=== PATIENT | male | born 1960 | race Caucasian/White ===

== ENCOUNTER 2017-06-08 09:01 | Inpatient (IN) | payer MEDICARE, MEDICAID ==
[~2017-06-08] VITALS: Ht 172.7 cm; Wt 62.7 kg
[~2017-06-08 09:01] MED LIST: AMLO10TA4 PO; ATEN50TA41 PO; BLOOD PRESSURE; CLOP75TA22 PO; ERGO500017 PO; IPRA4AER INH; LEVO750T26 PO; LISI5TAB7 PO; MULT-750 PO; OMEP-110 PO; OXYC1TAB7 PO
[2017-06-08] MEDS ORDERED: MECLIZINE CHEWABLE 25 MG TAB PO ONE (09:30)
[2017-06-08] MEDS ORDERED: ASPIRIN 81 MG TABLET CHEW PO ONE (09:30)
[2017-06-08] MEDS ORDERED: SODIUM CHLORIDE FLUSH 10ML SYR IVF ONE (09:30)
[2017-06-08] MEDS ORDERED: CARBAMIDE PEROXIDE EAR DROPS 6.5%, 15ML LEFT EAR ONE (09:30)
[2017-06-08 10:22] LABS: HEMATOCRIT 45.5 % (39.2-51.8); HEMOGLOBIN 15.5 g/dL (13.7-18.0); WHITE BLOOD COUNT 7.4 x10^3/uL (3.4-10)
[2017-06-08 10:37] LABS: BLOOD UREA NITROGEN 28 mg/dL (7-18)
[2017-06-08 10:41] LABS: IS PT STATUS REG ER OR PRE ER? YES
[2017-06-08] MEDS ORDERED: CARBAMIDE PEROXIDE EAR DROPS 6.5%, 15ML ONE (11:32)
[2017-06-08] MEDS ORDERED: ASPIRIN 81 MG TABLET CHEW ONE (11:32)
[2017-06-08] MEDS ORDERED: MECLIZINE CHEWABLE 25 MG TAB ONE (11:32)
[2017-06-08] MEDS ORDERED: SODIUM CHLORIDE 0.9%, 500ML IVBOLUS ONE (13:30)
[2017-06-08 15:30] VITALS: BP 181/109
[2017-06-08] MEDS ORDERED: morphine SULFATE 10 MG/ML, 1ML IVPush PRN (16:30)
[2017-06-08] MEDS ORDERED: DOCUSATE 100 MG CAPSULE PO PRN (16:30)
[2017-06-08] MEDS ORDERED: HYDROcodone/APAP 5/325 TABLET PO PRN (16:30)
[2017-06-08] MEDS ORDERED: NITROGLYCERIN 0.4 MG BOTTLE (25 TABS) SL PRN (16:30)
[2017-06-08] MEDS ORDERED: ACETAMINOPHEN 325 MG TABLET PO PRN (16:30)
[2017-06-08] MEDS ORDERED: POLYETHYLENE GLYCOL 17 GM PACKET PO PRN (16:30)
[2017-06-08] MEDS ORDERED: ONDANSETRON 2MG/ML, 2ML IVPush PRN (16:30)
[2017-06-08] MEDS ORDERED: LORazepam 2 MG/ML, 1ML IVPush PRN (16:30)
[2017-06-08] MEDS ORDERED: hydrALAzine 20 MG/ML, 1ML IVPush PRN (16:30)
[2017-06-08] MEDS ORDERED: PHARMACY MAY ADJ FOR RENAL FX MC PRN (16:30)
[2017-06-08] MEDS ORDERED: LORazepam 2 MG/ML, 1ML IV PRN ×4 (16:30)
[2017-06-08 16:44] LABS: ASPARTATE AMINO TRANSFERASE 28 U/L (15-37)
[2017-06-08 16:47] LABS: IS PT STATUS REG ER OR PRE ER? NO
[2017-06-08 17:02] VITALS: BP 153/100
[2017-06-08] MEDS: NICOTINE 14MG/24 HR PATCH.TD24 TD SCH (17:19)
[2017-06-08] MEDS: ATENOLOL 50 MG TABLET PO SCH (18:00)
[2017-06-08 18:10] VITALS: BP 132/85
[2017-06-08] MEDS: SODIUM CHLORIDE 0.9% 1,000 ML IV SCH (18:11)
[2017-06-08 20:50] VITALS: BP 134/83
[2017-06-08 22:21] LABS: IS PT STATUS REG ER OR PRE ER? NO
[2017-06-09 01:38] VITALS: BP 154/85
[2017-06-09] MEDS: ATENOLOL 50 MG TABLET PO SCH ×2 (05:13→18:44)
[2017-06-09] MEDS: SODIUM CHLORIDE 0.9% 1,000 ML IV SCH ×2 (05:13→19:52)
[2017-06-09 05:43] LABS: HEMATOCRIT 38.7 % (39.2-51.8); HEMOGLOBIN 13.1 g/dL (13.7-18.0); WHITE BLOOD COUNT 5.9 x10^3/uL (3.4-10)
[2017-06-09 05:58] LABS: ASPARTATE AMINO TRANSFERASE 23 U/L (15-37); BLOOD UREA NITROGEN 36 mg/dL (7-18)
[2017-06-09] MEDS ORDERED: ASPIRIN 325 MG TABLET EC PO SCH (06:00)
[2017-06-09 07:09] VITALS: BP 151/83
[2017-06-09] MEDS ORDERED: REGADENOSON 0.4 MG/5 ML SYRINGE ONE (07:46)
[2017-06-09] MEDS: AMLODIPINE 5 MG TABLET PO SCH (12:02)
[2017-06-09 12:40] VITALS: BP 144/83
[2017-06-09] MEDS ORDERED: AMLO10TA2 PO (16:13)
[2017-06-09] MEDS: NICOTINE 14MG/24 HR PATCH.TD24 TD SCH (16:30)
[2017-06-09] MEDS ORDERED: THIAMINE 200 MG in SODIUM CHLORIDE 0.9% 50 ML IV ONE (17:00)
[2017-06-09 17:37] LABS: PROSTATE SPECIFIC ANTIGEN 1.21 ng/mL (0.00-4.00)
[2017-06-09 19:22] VITALS: BP 153/93
[2017-06-10 01:37] VITALS: BP 153/88
[2017-06-10] MEDS ORDERED: ASPIRIN 325 MG TABLET EC PO SCH (06:00)
[2017-06-10 06:19] LABS: HEMATOCRIT 38.7 % (39.2-51.8); HEMOGLOBIN 13.1 g/dL (13.7-18.0); WHITE BLOOD COUNT 5.5 x10^3/uL (3.4-10)
[2017-06-10 06:28] LABS: BLOOD UREA NITROGEN 36 mg/dL (7-18)
[2017-06-10 06:58] VITALS: BP 145/85
[2017-06-10] MEDS: AMLODIPINE 5 MG TABLET PO SCH (08:43)
[2017-06-10] MEDS: ATENOLOL 50 MG TABLET PO SCH (08:43)
[2017-06-10] MEDS ORDERED: MULTIVITAMINS/MINERALS TABLET PO SCH (09:00)
[2017-06-10] MEDS: SODIUM CHLORIDE 0.9% 1,000 ML IV SCH (10:52)
[2017-06-10 12:09] LABS: OCCBLD OBC PASS
[2017-06-10] MEDS: NICOTINE 14MG/24 HR PATCH.TD24 TD SCH (16:30)
[2017-06-10 17:00] VITALS: BP_SYST 152; BP_SYST 155; BP_DIAS 90; BP_DIAS 91
[2017-06-10] MEDS ORDERED: MULT1TAB60 PO (17:23)
[2017-06-10] MEDS ORDERED: ASPI-621 PO (17:25)
== END 2017-06-10 18:34 | disposition home or self-care (01) | DRG 292 ==
LOC: ED 13:55 → EDIP 13:56 → ED 14:07 → 3NE 15:23 → 5SO 17:33
PROVIDERS: ADMIT Internal Medicine; ATTEND Internal Medicine
DX: I13.0 Hypertensive heart and chronic kidney disease with heart failure and stage 1 through stage 4 chronic kidney disease, or unspecified chronic kidney disease (principal); N17.9 Acute kidney failure, unspecified; I50.30 Unspecified diastolic (congestive) heart failure; N18.4 Chronic kidney disease, stage 4 (severe); Q61.2 Polycystic kidney, adult type; F10.288 Alcohol dependence with other alcohol-induced disorder; R07.9 Chest pain, unspecified; H91.92 Unspecified hearing loss, left ear; M54.5 Low back pain; F17.210 Nicotine dependence, cigarettes, uncomplicated; D63.1 Anemia in chronic kidney disease; D69.6 Thrombocytopenia, unspecified; F12.90 Cannabis use, unspecified, uncomplicated; G93.89 Other specified disorders of brain; I25.10 Atherosclerotic heart disease of native coronary artery without angina pectoris; I25.2 Old myocardial infarction; Z79.82 Long term (current) use of aspirin; Z82.49 Family history of ischemic heart disease and other diseases of the circulatory system; Z85.828 Personal history of other malignant neoplasm of skin; Z86.73 Personal history of transient ischemic attack (TIA), and cerebral infarction without residual deficits; Z95.5 Presence of coronary angioplasty implant and graft; Z83.3 Family history of diabetes mellitus
CPT/HCPCS: 36415; 70450; 70551; 71020; 71250; 76770; 78452; 80048; 80053; 80061; 80076; 82040; 82272; 83540; 83550; 83735; 83880; 84100; 84153; 84436; 84443; 84484; 85025; 93005; 93017; 93306; 99285; J2785; J3411; A9502; C9898; J7030

== ENCOUNTER 2018-06-20 10:53 | Emergency (ER) | payer MEDICARE, MEDICAID ==
[~2018-06-20] VITALS: Ht 172.7 cm; Wt 70.0 kg
[~2018-06-20 10:53] MED LIST changes: +AMLO10TA2 PO; +ASPI-621 PO; -CLOP75TA22 PO; +CLOP75TA52 PO; +MULT1TAB60 PO
[2018-06-20] MEDS ORDERED: HYDROcodone/APAP 5/325 TABLET PO PRN (11:30)
[2018-06-20] MEDS ORDERED: HYDROcodone/APAP 5/325 TABLET ONE (12:09)
[2018-06-20 12:59] VITALS: BP 151/85
== END 2018-06-20 13:41 | disposition home or self-care (01) ==
LOC: ED 10:59
DX: S01.01XA Laceration without foreign body of scalp, initial encounter (principal); S09.90XA Unspecified injury of head, initial encounter; I11.0 Hypertensive heart disease with heart failure; I25.2 Old myocardial infarction; I25.10 Atherosclerotic heart disease of native coronary artery without angina pectoris; I50.30 Unspecified diastolic (congestive) heart failure; Z85.9 Personal history of malignant neoplasm, unspecified; Y04.0XXA Assault by unarmed brawl or fight, initial encounter; Y93.89 Activity, other specified; Y92.89 Other specified places as the place of occurrence of the external cause; Y99.0 Civilian activity done for income or pay
CPT/HCPCS: 12001; 70450; 70486; 99284

== ENCOUNTER 2020-07-02 19:18 | Emergency (ER) | payer MEDICARE, MEDICAID ==
[~2020-07-02] VITALS: Ht 172.7 cm; Wt 61.6 kg
[~2020-07-02 19:18] MED LIST changes: -AMLO10TA2 PO; +AMLO10TA8 PO; -ASPI-621 PO; +ASPI81TA45 PO; +ATOR40TA78 PO; +DARB100V SQ; +FURO40TA6 PO; +HYDR-3237 PO; +METO50TA6 PO; +MULT-449 PO; -MULT1TAB60 PO; +NICO-485 TD; +PRED10TA PO; +PRED20TA PO; +SEVE800T8 PO; +SODI650T PO
--- NOTE | 2020-07-02 21:50 | NUR ---
Pt requesting O2 via NC at this time, pt states "i haven't taken my inhaler in several hours and need o2." Pt o2 sat 93% on RA, 2 L applied via NC per request for comfort
[2020-07-02 22:21] VITALS: BP 130/72
--- NOTE | 2020-07-02 22:21 | NUR ---
Pt DCed at this time, education provided on care at home and f/u. Pt states he "needs to be admitted because he hasn't slept in a while and if he goes to sleep, he may not be able to wake up for dialysis because they come to get him, but he may not be well enough to get up." Education provided on plan of care and that he is being DCed at this time per Dr Wilkinson orders. Pt provided with taxi voucher and wheelchaired to registration to check out.
== END 2020-07-02 22:26 | disposition home or self-care (01) ==
LOC: ED 21:21
DX: S41.112A Laceration without foreign body of left upper arm, initial encounter (principal); S50.812A Abrasion of left forearm, initial encounter; R94.31 Abnormal electrocardiogram [ECG] [EKG]; I11.0 Hypertensive heart disease with heart failure; I50.9 Heart failure, unspecified; I25.10 Atherosclerotic heart disease of native coronary artery without angina pectoris; I25.2 Old myocardial infarction; J44.9 Chronic obstructive pulmonary disease, unspecified; X58.XXXA Exposure to other specified factors, initial encounter; Y93.89 Activity, other specified; Y92.89 Other specified places as the place of occurrence of the external cause; Y99.8 Other external cause status
CPT/HCPCS: 12001; 93005; 99283

== ENCOUNTER 2020-12-20 08:59 | Emergency (ER) | payer MEDICARE, MEDICAID ==
[~2020-12-20] VITALS: Ht 175.3 cm; Wt 62.8 kg
[~2020-12-20 08:59] MED LIST changes: +AMLO-211 PO; -AMLO10TA8 PO; +CARV6.252 PO; +CEFD300C37 PO; +DARB60VI SQ; +DOXY100T23 PO; +LOSA25TA25 PO; +MULT1TAB76 PO
--- NOTE | 2020-12-20 09:56 | NUR ---
Patient is resting comfortably in bed. Vital Signs within normal limits.
[2020-12-20 10:01] LABS: BASOPHILS % (AUTO) 1 % (0-1); EOSINOPHILS % (AUTO) 2 % (1-7); LYMPHOCYTES % (AUTO) 14 % (22-44); MEAN CORPUSCULAR HEMOGLOBIN 36.4 pg (27.5-34.5); MEAN CORPUSCULAR HGB CONC 34.9 g/dL (33.2-36.2); MEAN PLATELET VOLUME 7.3 fL (7.4-10.4); MONOCYTES % (AUTO) 9 % (2-9); NEUTROPHILS % (AUTO) 74 % (42-75); PLATELET COUNT 81 x10^3/uL (130-400); RED BLOOD COUNT 2.68 x10^6/uL (4.38-5.82); RED CELL DISTRIBUTION WIDTH 16.8 % (9.4-14.8)
[2020-12-20 10:08] LABS: MD NO
[2020-12-20 10:10] LABS: ALBUMIN 3.7 g/dL (3.4-5.0); ANION GAP 11 mmol/L (5-15); CALCIUM 9.2 mg/dL (8.5-10.1); CHLORIDE 100 mmol/L (98-107); CREATININE 6.33 mg/dL (0.7-1.3)
[2020-12-20 10:15] LABS: INTERNATIONAL NORMALIZED RATIO 1.1 (0.93-1.1); PROTHROMBIN TIME 11.7 Seconds (9.6-11.5)
[2020-12-20] MEDS ORDERED: LIDOCAINE-MPF 1%, 5ML ONE (11:54)
[2020-12-20 11:55] VITALS: BP 131/69
[2020-12-20] MEDS ORDERED: LIDOCAINE 1%-EPI 1:100K, 20ML SQ ONE (12:00)
--- NOTE | 2020-12-20 12:00 | NUR ---
EDP AT BEDSIDE. MANISH WOUND/DRESSING UNWRAPPED. NO BLEEDING PRESENT. EDP INJECTED LIDO AND WRAPPED WITH GAUZE AND COBAN. PT TOLERATED WELL.
[2020-12-20] MEDS ORDERED: OMNIPAQUE 350 MG/ML, 75ML BOTTLE ONE (12:04)
--- NOTE | 2020-12-20 12:22 | NUR ---
PT TO CTA.
[2020-12-31] MEDS ORDERED: ASPI-1026 PO (14:54)
[2020-12-31] MEDS ORDERED: ATOR40TA78 PO (14:54)
== END 2020-12-20 13:42 | disposition home or self-care (01) ==
LOC: ED 11:42
DX: I12.9 Hypertensive chronic kidney disease with stage 1 through stage 4 chronic kidney disease, or unspecified chronic kidney disease (principal); N18.4 Chronic kidney disease, stage 4 (severe); R06.02 Shortness of breath; R06.00 Dyspnea, unspecified; I11.0 Hypertensive heart disease with heart failure; I50.9 Heart failure, unspecified; J44.9 Chronic obstructive pulmonary disease, unspecified; I25.2 Old myocardial infarction; I25.10 Atherosclerotic heart disease of native coronary artery without angina pectoris; R94.31 Abnormal electrocardiogram [ECG] [EKG]; F17.200 Nicotine dependence, unspecified, uncomplicated
CPT/HCPCS: 36415; 71045; 71275; 80048; 82040; 85025; 85610; 85730; 87040; 93005; 99285; Q9967

== ENCOUNTER 2021-03-02 21:53 | Emergency (ER) | payer MEDICARE, MEDICAID ==
[~2021-03-02] VITALS: Ht 175.3 cm; Wt 65.0 kg
[~2021-03-02 21:53] MED LIST changes: +AMLO-150 PO; +ASPI-1026 PO; +CARV12.52 PO; +CIPR500T87 PO; +FURO80TA3 PO; +MULT-482 PO; -MULT-750 PO
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
--- NOTE | 2021-03-02 23:05 | NUR ---
PT TAKEN TO CT SCAN AND BACK TO ROOM. BUILDINGS AND GROUNDS DIRECTOR TO BEDSIDE TO TAKE XRAYS OF THE NOSE. PT A&OX4.
--- NOTE | 2021-03-02 23:18 | NUR ---
LUMBER PRESS OPERATOR TO BEDSIDE TO DRAW LABS.
[2021-03-02 23:29] LABS: BASOPHILS % (AUTO) 1 % (0-1); EOSINOPHILS % (AUTO) 3 % (1-7); LYMPHOCYTES % (AUTO) 16 % (22-44); MEAN CORPUSCULAR HEMOGLOBIN 36.7 pg (27.5-34.5); MEAN CORPUSCULAR HGB CONC 34.9 g/dL (33.2-36.2); MEAN PLATELET VOLUME 6.8 fL (7.4-10.4); MONOCYTES % (AUTO) 10 % (2-9); NEUTROPHILS % (AUTO) 69 % (42-75); PLATELET COUNT 90 x10^3/uL (130-400); RED BLOOD COUNT 2.34 x10^6/uL (4.38-5.82); RED CELL DISTRIBUTION WIDTH 16.7 % (9.4-14.8)
[2021-03-02 23:39] LABS: ALANINE AMINOTRANSFERASE 36 U/L (12-78); ALBUMIN 3.6 g/dL (3.4-5.0); ANION GAP 6 mmol/L (5-15); CALCIUM 8.7 mg/dL (8.5-10.1); CHLORIDE 94 mmol/L (98-107); CREATININE 2.88 mg/dL (0.7-1.3)
[2021-03-02 23:42] LABS: ALKALINE PHOSPHATASE 79 U/L (45-117); BILIRUBIN,TOTAL 1.2 mg/dL (0.2-1.0); TOTAL PROTEIN 6.6 g/dL (6.4-8.2)
[2021-03-02 23:55] LABS: MD SCAN
--- NOTE | 2021-03-03 00:16 | NUR ---
PT SLEEPING AT THIS TIME, NO DISTRESS. ON CR MONITOR.
--- NOTE | 2021-03-03 00:36 | NUR ---
PT AWAKENED AND ASSITED TO SITTING AND STANDING POSITION TO SEE HOW PT DOES. PT STATES HE HAS MASSIVE PAIN TO HIS UPPER THIGHS BILATERALLY. UNABLE TO WALK PER PT. MD ADVISED.
--- NOTE | 2021-03-03 01:10 | NUR ---
PT STATES HE IS HAVING TROUBLE BREATHING, ON O2 NC 2 LPM AT THIS TIME. PT SAYS EVEN WHEN HE IS SATURATING 100% HE IS IN RESPIRATORY DISTRESS, AND IT'S ONLY THAT HIGH BECAUSE HE'S GASPING FOR OXYGEN. PT HAVING 2 WORD SENTENCES IN HIS ATTEMPTS TO TALK, USING SOME ACCESORY MUSCLES. MD ADVISED FOR REASSESMENT OF PTS STATUS.
--- NOTE | 2021-03-03 01:15 | NUR ---
Note trueone in EDM - 03/03/21 at 0120 by RABIA RIO ARRIVED TO TRANSFER PT TO [facility]. PT A&OX4, NO DISTRESS AT THIS TIME, REMAINS ON O2 NC 1LPM. REPORT AND CARE TRANSFERRED TO EMS CREW. PTS IV INTACT, FLUSHES EASILY .
[2021-03-03 01:16] VITALS: BP 108/61
[2021-03-03] MEDS ORDERED: ALBUTEROL/IPRATROPIUM 2.5MG/0.5MG, 3 ML ONE (01:23)
[2021-03-03] MEDS ORDERED: ALBUTEROL/IPRATROPIUM 2.5MG/0.5MG, 3 ML NPPB ONE (01:30)
== END 2021-03-03 01:18 | disposition home or self-care (01) ==
LOC: ED 22:50
DX: S02.2XXA Fracture of nasal bones, initial encounter for closed fracture (principal); F10.120 Alcohol abuse with intoxication, uncomplicated; J44.1 Chronic obstructive pulmonary disease with (acute) exacerbation; I11.0 Hypertensive heart disease with heart failure; I50.9 Heart failure, unspecified; I25.2 Old myocardial infarction; J44.9 Chronic obstructive pulmonary disease, unspecified; I25.10 Atherosclerotic heart disease of native coronary artery without angina pectoris; F17.200 Nicotine dependence, unspecified, uncomplicated; Z85.9 Personal history of malignant neoplasm, unspecified; X58.XXXA Exposure to other specified factors, initial encounter; Y93.89 Activity, other specified; Y92.89 Other specified places as the place of occurrence of the external cause; Y99.8 Other external cause status; Y90.0 Blood alcohol level of less than 20 mg/100 ml
CPT/HCPCS: 36415; 70450; 70486; 71045; 80053; 80320; 85025; 99285; G0480

== ENCOUNTER 2021-06-09 16:28 | Inpatient (IN) | payer MEDICARE, MEDICAID ==
[~2021-06-09] VITALS: Ht 172.7 cm; Wt 63.8 kg
[~2021-06-09 16:28] MED LIST changes: +ASPI325T17 PO; +CARV3.1212 PO; +HYDR-2214 PO; +OXYC1TAB14 PO; +SPIR25TA PO
--- NOTE | 2021-06-09 16:44 | NUR ---
PT HAD DIALYSIS ON THURSDAY AND FEELS SOB AND FEELS THAT THEY DID NOT TAKE OFF ENOUGH FLUID. PT HAS FISTULA IN LEFT UPPER ARM.
[2021-06-09 18:34] LABS: BASOPHILS % (AUTO) 1 % (0-1); EOSINOPHILS % (AUTO) 2 % (1-7); LYMPHOCYTES % (AUTO) 16 % (22-44); MEAN CORPUSCULAR HEMOGLOBIN 36.1 pg (27.5-34.5); MEAN PLATELET VOLUME 8.5 fL (7.4-10.4); MONOCYTES % (AUTO) 11 % (2-9); NEUTROPHILS % (AUTO) 71 % (42-75); PLATELET COUNT 78 x10^3/uL (130-400); RED BLOOD COUNT 2.52 x10^6/uL (4.38-5.82); RED CELL DISTRIBUTION WIDTH 16.9 % (9.4-14.8)
[2021-06-09 18:37] LABS: ALANINE AMINOTRANSFERASE 20 U/L (12-78); ALBUMIN 3.5 g/dL (3.4-5.0); ANION GAP 11 mmol/L (5-15); CALCIUM 8.9 mg/dL (8.5-10.1); CHLORIDE 95 mmol/L (98-107); CREATININE 6.01 mg/dL (0.7-1.3)
[2021-06-09 18:41] LABS: ALKALINE PHOSPHATASE 65 U/L (45-117); BILIRUBIN,TOTAL 1.2 mg/dL (0.2-1.0); TOTAL PROTEIN 6.9 g/dL (6.4-8.2); TROPONIN I < 0.015 ng/mL (0.000-0.045)
[2021-06-09] MEDS ORDERED: ONDANSETRON 2MG/ML, 2ML IVPush PRN ×2 (20:00→22:30)
[2021-06-09] MEDS ORDERED: MORPHINE SULFATE 4 MG/ML, 1ML IVPush PRN (20:00)
--- NOTE | 2021-06-09 21:01 | NUR ---
REPORT TO TOYA PATEL
[2021-06-09] MEDS ORDERED: LABETALOL 5MG/ML, 20ML IVPush PRN (22:30)
[2021-06-09] MEDS ORDERED: GABAPENTIN 300 MG CAPSULE PO PRN (22:30)
--- NOTE | 2021-06-09 23:56 | NUR ---
PT ASLEEP IN BED, ALL NEEDS IN REACH, CALL LIGHT IN REACH, NAD AT THIS TIME
--- NOTE | 2021-06-10 | NUR ---
Break RN assuming care at this time.
--- NOTE | 2021-06-10 00:49 | NUR ---
PT WOKE UP STATING HE CANT BREATH AND WANTED OXYGEN TO GET TURNED UP, PT STATED, "BLAST THE OXYGEN PLEASE", PT ON NASAL CANULA RUNNING AT 6 LPM
[2021-06-10] MEDS ORDERED: HEPARIN 5,000 UNITS/ML, 1ML ONE (01:13)
--- NOTE | 2021-06-10 02:11 | NUR ---
PT ASLEEP IN BED, ALL NEEDS IN REACH, CALL LIGHT IN REACH, NAD AT THIS TIME, VSS
--- NOTE | 2021-06-10 05:21 | NUR ---
PT ASLEEP IN BED, ALL NEEDS IN REACH, CALL LIGHT IN REACH, NAD AT THIS TIME
[2021-06-10] MEDS ORDERED: CARVEDILOL 3.125 MG TABLET ONE (05:47)
[2021-06-10] MEDS: CARVEDILOL 3.125 MG TABLET PO SCH ×2 (05:55→18:00)
--- NOTE | 2021-06-10 05:56 | NUR ---
THIS RN WOKE PT UP FOR MEDICATION ADMINISTRATION, THIS RN WAS TO GIVE CARVEDILOL AND PT ASKED WHAT IT WAS FOR, THIS RN STATED IT WAS FOR BLOOD PRESSURE AND PT ASKED WHAT HIS BLOOD PRESSURE WAS, PTS BLOOD PRESSURE WAS WITHIN NORMAL LIMITS SO PT SAID HE DIDNT NEED IT AT THE MOMENT, PT WENT BACK TO SLEEP, PT NAD, ALL NEEDS IN REACH, CALL LIGHT IN REACH, NAD AT THIS TIME
[2021-06-10 06:15] LABS: BASOPHILS % (AUTO) 1 % (0-1); EOSINOPHILS % (AUTO) 1 % (1-7); LYMPHOCYTES % (AUTO) 15 % (22-44); MEAN CORPUSCULAR HEMOGLOBIN 35.8 pg (27.5-34.5); MEAN CORPUSCULAR HGB CONC 34.4 g/dL (33.2-36.2); MONOCYTES % (AUTO) 10 % (2-9); NEUTROPHILS % (AUTO) 72 % (42-75); PLATELET COUNT 65 x10^3/uL (130-400); RED BLOOD COUNT 2.23 x10^6/uL (4.38-5.82); RED CELL DISTRIBUTION WIDTH 16.8 % (9.4-14.8)
[2021-06-10 06:19] LABS: ANION GAP 7 mmol/L (5-15); CALCIUM 8.7 mg/dL (8.5-10.1); CHLORIDE 98 mmol/L (98-107)
--- NOTE | 2021-06-10 07:13 | NUR ---
Pt to be admitted to [facility], room 493-1. Report called to AMEE.
[2021-06-10] MEDS: HEPARIN 5,000 UNITS/ML, 1ML SQ SCH ×3 (08:00→15:55)
[2021-06-10 08:01] VITALS: BP 117/69
[2021-06-10] MEDS: ALBUTEROL/IPRATROPIUM 2.5MG/0.5MG, 3 ML HHN SCH ×4 (08:33→19:44)
[2021-06-10 09:37] VITALS: BP 111/67
[2021-06-10] MEDS: ASPIRIN 325 MG TABLET PO SCH (09:42)
[2021-06-10] MEDS: FUROSEMIDE 40 MG TABLET PO SCH ×2 (09:42→18:51)
[2021-06-10] MEDS: ACETAMINOPHEN 325 MG TABLET PO PRN ×2 (09:42→20:34)
[2021-06-10] MEDS: THIAMINE 100MG TABLET PO SCH (09:42)
[2021-06-10 14:44] VITALS: BP 127/82
[2021-06-10 20:29] VITALS: BP 111/48
[2021-06-10] MEDS: GABAPENTIN 300 MG CAPSULE PO PRN (20:33)
[2021-06-10] MEDS ORDERED: ATORVASTATIN 40 MG TABLET PO SCH (21:00)
[2021-06-11 02:07] VITALS: BP 119/71
[2021-06-11 05:19] LABS: BASOPHILS % (AUTO) 1 % (0-1); EOSINOPHILS % (AUTO) 3 % (1-7); LYMPHOCYTES % (AUTO) 14 % (22-44); MEAN CORPUSCULAR HEMOGLOBIN 35.2 pg (27.5-34.5); MEAN CORPUSCULAR HGB CONC 34.2 g/dL (33.2-36.2); MEAN PLATELET VOLUME 7.5 fL (7.4-10.4); MONOCYTES % (AUTO) 10 % (2-9); NEUTROPHILS % (AUTO) 72 % (42-75); PLATELET COUNT 68 x10^3/uL (130-400); RED BLOOD COUNT 2.38 x10^6/uL (4.38-5.82); RED CELL DISTRIBUTION WIDTH 16.9 % (9.4-14.8)
[2021-06-11 05:26] LABS: ALBUMIN 3.4 g/dL (3.4-5.0); ANION GAP 9 mmol/L (5-15); CALCIUM 8.2 mg/dL (8.5-10.1); CHLORIDE 93 mmol/L (98-107)
[2021-06-11 05:35] LABS: % IRON SATURATION 30 % (20-55); ALANINE AMINOTRANSFERASE 22 U/L (12-78); ALKALINE PHOSPHATASE 59 U/L (45-117); BILIRUBIN,TOTAL 1.4 mg/dL (0.2-1.0); CREATININE 3.69 mg/dL (0.7-1.3); IRON LEVEL 78 mcg/dL (65-175); TOTAL IRON BINDING CAPACITY 264 mcg/dL (250-450); TOTAL PROTEIN 6.9 g/dL (6.4-8.2)
[2021-06-11] MEDS: CARVEDILOL 3.125 MG TABLET PO SCH ×2 (06:38→18:03)
[2021-06-11] MEDS: FUROSEMIDE 40 MG TABLET PO SCH ×2 (06:39→18:03)
[2021-06-11] MEDS: HEPARIN 5,000 UNITS/ML, 1ML SQ SCH ×3 (07:16→16:00)
[2021-06-11] MEDS: ALBUTEROL/IPRATROPIUM 2.5MG/0.5MG, 3 ML HHN SCH ×4 (07:30→19:03)
[2021-06-11 08:04] VITALS: BP 91/50
[2021-06-11] MEDS: GABAPENTIN 300 MG CAPSULE PO PRN (08:37)
[2021-06-11] MEDS: THIAMINE 100MG TABLET PO SCH (08:37)
[2021-06-11] MEDS: ASPIRIN 325 MG TABLET PO SCH (08:37)
[2021-06-11] MEDS ORDERED: ASPI-963 PO (17:32)
== END 2021-06-11 19:48 | disposition home or self-care (01) | DRG 291 ==
LOC: ED 16:55 → EDIP 19:36 → 4EST 06-10 07:33
PROVIDERS: ADMIT Family Medicine; ATTEND Hospitalist
PROC: 5A1D70Z Performance of Urinary Filtration, Intermittent, Less than 6 Hours Per Day (ICD-10-PCS; principal; 2021-06-11)
DX: I13.2 Hypertensive heart and chronic kidney disease with heart failure and with stage 5 chronic kidney disease, or end stage renal disease (principal); I50.43 Acute on chronic combined systolic (congestive) and diastolic (congestive) heart failure; N18.6 End stage renal disease; Q61.3 Polycystic kidney, unspecified; E87.1 Hypo-osmolality and hyponatremia; Q61.2 Polycystic kidney, adult type; Z99.2 Dependence on renal dialysis; D63.1 Anemia in chronic kidney disease; D69.6 Thrombocytopenia, unspecified; E78.5 Hyperlipidemia, unspecified; F10.10 Alcohol abuse, uncomplicated; F12.10 Cannabis abuse, uncomplicated; F17.200 Nicotine dependence, unspecified, uncomplicated; G89.29 Other chronic pain; I25.10 Atherosclerotic heart disease of native coronary artery without angina pectoris; I25.5 Ischemic cardiomyopathy; J44.9 Chronic obstructive pulmonary disease, unspecified; K43.9 Ventral hernia without obstruction or gangrene; N25.0 Renal osteodystrophy; Z99.81 Dependence on supplemental oxygen; Z95.5 Presence of coronary angioplasty implant and graft; I25.2 Old myocardial infarction; Z86.73 Personal history of transient ischemic attack (TIA), and cerebral infarction without residual deficits; Z91.19 Patient's noncompliance with other medical treatment and regimen
CPT/HCPCS: 36415; 71045; 80048; 80053; 82306; 82728; 83540; 83550; 83970; 84100; 84484; 85025; 90935; 93005; 93308; 93321; 93325; 94640; 99285; G0378

== ENCOUNTER 2021-06-18 11:45 | Inpatient (IN) | payer MEDICARE, MEDICAID ==
[~2021-06-18] VITALS: Ht 175.3 cm; Wt 67.2 kg
[~2021-06-18 11:45] MED LIST changes: +ASPI-963 PO; +EPINEPHRINE SYRINGE 0.1 MG/ML, 10ML ONE; +OXYC1TAB12 PO; -OXYC1TAB14 PO; +SODIUM BICARB 8.4%, 50ML SYRINGE ONE
--- NOTE | 2021-06-18 11:45 | NUR ---
DR AGUILAR AT BEDSIDE TO EVAL PT. 61 YR OLD MALE BROUGHT IN BY EMS. PER REPORT PT WAS ON RTC BUS FROM DIALYSIS, PT "PASSED OUT, WASNT BREATHING" PT FOUND TO BE IN VFIB, CPR INITIATED, DEFIB X3 AND TWO ROUNDS OF EPI, AMMIO 300MG GIVEN. BLOOD SUGAR 152. ROSC RETURNED. PT ARRIVES WITH 7.0 ETT, BMV IN PROCESS. I/O IN LEFT RAMIRES NS INFUSING. PT PLACED ON MONITORS. 1 AMP CALCIUM CHLORIDE GIVEN PER V/O DR AGUILAR.
[2021-06-18] MEDS ORDERED: SODIUM CHLORIDE FLUSH 10ML SYR IVF ONE (12:00)
[2021-06-18] MEDS ORDERED: CALCIUM CHLORIDE 10%, 10ML SYR IVPush ONE (12:00)
--- NOTE | 2021-06-18 12:03 | NUR ---
RT AT BEDSIDE TO PLACE PT ON VENTILATOR
--- NOTE | 2021-06-18 12:05 | NUR ---
CODE BLUE CALLED PT IN [facility]. SEE CODE SHEET
[2021-06-18 12:35] LABS: BASOPHILS % (AUTO) 1 % (0-1); EOSINOPHILS % (AUTO) 2 % (1-7); LYMPHOCYTES % (AUTO) 28 % (22-44); MEAN CORPUSCULAR HGB CONC 34.3 g/dL (33.2-36.2); MEAN PLATELET VOLUME 7.6 fL (7.4-10.4); MONOCYTES % (AUTO) 3 % (2-9); NEUTROPHILS % (AUTO) 66 % (42-75); PLATELET COUNT 94 x10^3/uL (130-400); RED CELL DISTRIBUTION WIDTH 16.8 % (9.4-14.8)
[2021-06-18 12:38] LABS: INTERNATIONAL NORMALIZED RATIO 1.24 (0.93-1.1); PROTHROMBIN TIME 13.1 Seconds (9.6-11.5)
--- NOTE | 2021-06-18 12:40 | NUR ---
DR AGUILAR AT BEDSIDE FOR CENTRAL LINE PLACEMENT. PT WITH FISULA IN RIGHT UPPER ARM Addendum: 06/18/21 at 1314 by LOVE PT UNABLE TO SIGN CONSENT FOR CENTARAL LINE PLACEMENT.
[2021-06-18 12:41] LABS: FIO2 50 %
[2021-06-18] MEDS ORDERED: PROPOFOL 100 ML IV ONE (12:51)
[2021-06-18] MEDS ORDERED: MIDAZOLAM 1 MG/ML, 2ML ONE (12:51)
[2021-06-18 12:58] LABS: ALANINE AMINOTRANSFERASE 23 U/L (12-78); ALBUMIN 3.1 g/dL (3.4-5.0); ANION GAP 14 mmol/L (5-15); CALCIUM 8.8 mg/dL (8.5-10.1); CHLORIDE 99 mmol/L (98-107)
[2021-06-18] MEDS ORDERED: MIDAZOLAM 1 MG/ML, 2ML IVPush ONE (13:00)
[2021-06-18] MEDS ORDERED: PROPOFOL 100 ML IV PRN (13:00)
--- NOTE | 2021-06-18 13:05 | NUR ---
NS 1 LITER BAG, STARTED HORTICULTURE INSTRUCTOR, COMPLETED INFUSING.
[2021-06-18 13:21] LABS: ALKALINE PHOSPHATASE 64 U/L (45-117); BILIRUBIN,TOTAL 0.9 mg/dL (0.2-1.0); TOTAL PROTEIN 6.5 g/dL (6.4-8.2)
[2021-06-18 13:22] LABS: TROPONIN I 0.058 ng/mL (0.000-0.045)
--- NOTE | 2021-06-18 13:55 | NUR ---
ATTEMPT BY DR AGUILAR TO PLACE ART LINE IN RIGHT RADIAL, UNSUCCESSFUL
[2021-06-18] MEDS ORDERED: ACETAMINOPHEN 500 MG TABLET PO ONE (14:00)
--- NOTE | 2021-06-18 14:01 | NUR ---
REPORT TO BABITA PATEL
--- NOTE | 2021-06-18 14:03 | NUR ---
TASK RN: EKG IN PROCESS.
--- NOTE | 2021-06-18 14:31 | NUR ---
Cooling measures initated per protocol order.
[2021-06-18] MEDS ORDERED: SODIUM CHLORIDE FLUSH 10ML SYR IVF PRN (15:00)
[2021-06-18] MEDS ORDERED: FENTANYL PF 100 MCG/2ML ONE (15:23)
--- NOTE | 2021-06-18 15:28 | NUR ---
Report to Rahel PATEL.
[2021-06-18] MEDS ORDERED: FENTANYL PF 100 MCG/2ML IVPush ONE (15:30)
--- NOTE | 2021-06-18 15:56 | NUR ---
PT TRANSPORTED TO CCU.
[2021-06-18] MEDS ORDERED: POLYETHYLENE GLYCOL 17 GM PACKET PO PRN (16:00)
[2021-06-18] MEDS ORDERED: OXYcodone IR 5MG TABLET PO PRN (16:00)
[2021-06-18] MEDS ORDERED: BISACODYL 10 MG SUPP PR PRN (16:00)
[2021-06-18] MEDS ORDERED: ACETAMINOPHEN 325 MG TABLET PO PRN (16:00)
[2021-06-18] MEDS ORDERED: ENALAPRILAT 1.25 MG/ML, 2ML IVPush PRN (16:00)
[2021-06-18] MEDS ORDERED: LABETALOL 5MG/ML, 20ML IVPush PRN (16:00)
[2021-06-18] MEDS ORDERED: ONDANSETRON 2MG/ML, 2ML IVPush PRN (16:00)
[2021-06-18] MEDS ORDERED: morphine SULFATE 10 MG/ML, 1ML IVPush PRN (16:00)
[2021-06-18] MEDS ORDERED: SODIUM PHOSPHATE 20 MMOL in SODIUM CHLORIDE 0.9% 250 ML IVPB PRN (16:30)
[2021-06-18] MEDS ORDERED: MIDAZOLAM HCL 50 MG in SODIUM CHLORIDE 0.9% 40 ML IV PRN (16:30)
[2021-06-18] MEDS ORDERED: CALCIUM CHLORIDE 13.6 MEQ in SODIUM CHLORIDE 0.9% 100 ML IVPB PRN (16:30)
[2021-06-18] MEDS ORDERED: NOREPINEPHRINE 8 MG in SODIUM CHLORIDE 0.9% 242 ML IV PRN (16:30)
[2021-06-18] MEDS: ARTIFICIAL TEARS OINT 3.5 GM EACHEYE SCH (16:30)
[2021-06-18] MEDS ORDERED: MAGNESIUM SULFATE 1 GM in DEXTROSE 5% 100 ML IVPB PRN (16:30)
[2021-06-18] MEDS ORDERED: VECURONIUM 10 MG IVPush PRN (16:30)
[2021-06-18] MEDS ORDERED: MIDAZOLAM 1 MG/ML, 2ML IVPush PRN (16:30)
[2021-06-18] MEDS: KSCALE TO 4.0 IV SCH ×2 (16:30→20:30)
[2021-06-18] MEDS: NS + 20MEQ KCL 1,000 ML IV SCH (16:32)
[2021-06-18] MEDS: AMPICILLIN/SULBACTAM 1,500 MG in SODIUM CHLORIDE 0.9% 50 ML IV SCH ×2 (16:34→22:55)
[2021-06-18] MEDS: HEPARIN 5,000 UNITS/ML, 1ML SQ SCH (20:00)
[2021-06-18] MEDS ORDERED: FAMOTIDINE 20 MG/2 ML IVPush SCH (21:00)
[2021-06-18] MEDS ORDERED: NOREPINEPHRINE 32 MG in SODIUM CHLORIDE 0.9% 218 ML IV PRN (21:30)
[2021-06-18] MEDS ORDERED: NOREPINEPHRINE 32 MG in SODIUM CHLORIDE 0.9% 242 ML IV PRN (21:30)
[2021-06-18] MEDS: BUSPIRONE 10 MG TABLET NG SCH (22:08)
[2021-06-18] MEDS ORDERED: LACTATED RINGERS 500 ML IVBOLUS PRN (22:30)
[2021-06-18] MEDS ORDERED: REGULAR INSULIN 100 UNITS in SODIUM CHLORIDE 0.9% 99 ML IV PRN (22:30)
[2021-06-18] MEDS ORDERED: DOBUTAMINE/D5W PMX 250 ML IV PRN (22:30)
[2021-06-18] MEDS ORDERED: INSULIN REGULAR 100 UNITS/ML, 3ML VIAL IVPush ONE (23:00)
[2021-06-18] MEDS: PROPOFOL 100 ML IV PRN (23:03)
[2021-06-19] VITALS (12 sets, daily range): BP systolic 107–143; BP diastolic 54–65
[2021-06-19] MEDS: ARTIFICIAL TEARS OINT 3.5 GM EACHEYE SCH ×4 (00:04→23:55)
[2021-06-19] MEDS: FENTANYL PF 1,000 MCG in SODIUM CHLORIDE 0.9% 80 ML IV PRN ×2 (00:22→19:40)
[2021-06-19] MEDS: KSCALE TO 4.0 IV SCH ×3 (01:18→08:30)
[2021-06-19] MEDS ORDERED: POTASSIUM CHLORIDE PMX 100 ML IV ONE ×2 (01:30→05:30)
[2021-06-19] MEDS: HEPARIN 5,000 UNITS/ML, 1ML SQ SCH (04:00)
[2021-06-19] MEDS: PROPOFOL 100 ML IV PRN ×3 (04:04→17:46)
[2021-06-19 04:24] LABS: BASOPHILS % (AUTO) 0 % (0-1); EOSINOPHILS % (AUTO) 0 % (1-7); LYMPHOCYTES % (AUTO) 4 % (22-44); MEAN CORPUSCULAR HEMOGLOBIN 35.4 pg (27.5-34.5); MEAN CORPUSCULAR HGB CONC 34.5 g/dL (33.2-36.2); MEAN PLATELET VOLUME 7.9 fL (7.4-10.4); MONOCYTES % (AUTO) 8 % (2-9); NEUTROPHILS % (AUTO) 88 % (42-75); PLATELET COUNT 70 x10^3/uL (130-400); RED CELL DISTRIBUTION WIDTH 17.2 % (9.4-14.8)
[2021-06-19 04:30] LABS: ALANINE AMINOTRANSFERASE 33 U/L (12-78); ALBUMIN 2.8 g/dL (3.4-5.0); ANION GAP 9 mmol/L (5-15); CALCIUM 9.3 mg/dL (8.5-10.1); CHLORIDE 101 mmol/L (98-107); CREATININE 3.57 mg/dL (0.7-1.3)
[2021-06-19 04:32] LABS: ALKALINE PHOSPHATASE 53 U/L (45-117); BILIRUBIN,TOTAL 1.5 mg/dL (0.2-1.0); TOTAL PROTEIN 5.8 g/dL (6.4-8.2)
[2021-06-19] MEDS: AMPICILLIN/SULBACTAM 1,500 MG in SODIUM CHLORIDE 0.9% 50 ML IV SCH ×4 (04:38→22:51)
[2021-06-19 04:54] LABS: <PLATELET ESTIMATE> DECREASED; ANISOCYTOSIS 1+; LARGE PLATELETS 1+
[2021-06-19 04:55] LABS: ECHINOCYTES 1+; OVALOCYTES 1+
[2021-06-19] MEDS: NS + 20MEQ KCL 1,000 ML IV SCH (05:09)
[2021-06-19] MEDS: BUSPIRONE 10 MG TABLET NG SCH ×3 (05:20→21:32)
[2021-06-19 06:08] LABS: FIO2 50 %
[2021-06-19] MEDS: SENNA/DOCUSATE TABLET PO SCH (08:59)
[2021-06-19] MEDS: SODIUM CHLORIDE 0.9% 1,000 ML IV SCH ×2 (09:00→21:31)
[2021-06-19 09:54] LABS: MEAN CORPUSCULAR HEMOGLOBIN 35.5 pg (27.5-34.5); RED BLOOD COUNT 2.25 x10^6/uL (4.38-5.82)
[2021-06-19 09:55] LABS: CREATININE 2.88 mg/dL (0.7-1.3)
[2021-06-19] MEDS: NOREPINEPHRINE 32 MG in SODIUM CHLORIDE 0.9% 218 ML IV PRN (11:12)
[2021-06-19 16:07] LABS: MEAN CORPUSCULAR HEMOGLOBIN 34.1 pg (27.5-34.5); MEAN PLATELET VOLUME 8.2 fL (7.4-10.4); RED BLOOD COUNT 2.83 x10^6/uL (4.38-5.82); RED CELL DISTRIBUTION WIDTH 19.7 % (9.4-14.8)
[2021-06-19 17:21] LABS: PLATELET COUNT 40 x10^3/uL (130-400)
[2021-06-19 17:29] LABS: BAND#(MANUAL) 0.61 x10^3/uL; BANDS%(MANUAL) 6 % (0-7); LYMPH#(MANUAL) 1.01 x10^3/uL (1-3.4); LYMPHS% (MANUAL) 10 % (22-44); MONOS% (MANUAL) 4 % (2-9); SEG#(MANUAL) 8.08 x10^3/uL (1.8-6.8); SEGS% (MANUAL) 80 % (42-75)
[2021-06-19 17:30] LABS: ANISOCYTOSIS 2+; OVALOCYTES 1+; SCHISTOCYTES 1+
[2021-06-19 17:31] LABS: <PLATELET ESTIMATE> DECREASED; <PLT MORPHOLOGY> NORMAL PLT MORPH; ACANTHOCYTES 1+; ECHINOCYTES 1+
[2021-06-19] MEDS: FAMOTIDINE 20 MG/2 ML IVPush SCH (21:32)
[2021-06-19] MEDS ORDERED: DEXTROSE 50%, 50ML SYRINGE ONE (23:47)
[2021-06-20] MEDS ORDERED: DEXTROSE 50%, 50ML SYRINGE IVPush ONE
[2021-06-20] MEDS: PROPOFOL 100 ML IV PRN ×4 (01:34→23:35)
[2021-06-20] MEDS: NOREPINEPHRINE 32 MG in SODIUM CHLORIDE 0.9% 218 ML IV PRN (01:46)
[2021-06-20] MEDS: AMPICILLIN/SULBACTAM 1,500 MG in SODIUM CHLORIDE 0.9% 50 ML IV SCH ×3 (04:43→18:09)
[2021-06-20 04:44] LABS: BASOPHILS % (AUTO) 1 % (0-1); EOSINOPHILS % (AUTO) 1 % (1-7); LYMPHOCYTES % (AUTO) 8 % (22-44); MEAN CORPUSCULAR HEMOGLOBIN 33.7 pg (27.5-34.5); MEAN CORPUSCULAR HGB CONC 34.9 g/dL (33.2-36.2); MEAN PLATELET VOLUME 8.3 fL (7.4-10.4); MONOCYTES % (AUTO) 6 % (2-9); NEUTROPHILS % (AUTO) 85 % (42-75); PLATELET COUNT 73 x10^3/uL (130-400); RED BLOOD COUNT 2.63 x10^6/uL (4.38-5.82); RED CELL DISTRIBUTION WIDTH 20.2 % (9.4-14.8)
[2021-06-20] MEDS ORDERED: DEXTROSE 4 GM TAB.CHEW PO PRN (05:00)
[2021-06-20] MEDS ORDERED: DEXTROSE 50%, 50ML SYRINGE IVPush PRN (05:00)
[2021-06-20] MEDS ORDERED: GLUCAGON 1 MG IM PRN (05:00)
[2021-06-20] MEDS: BUSPIRONE 10 MG TABLET NG SCH (05:06)
[2021-06-20 07:25] LABS: ANION GAP 8 mmol/L (5-15); CALCIUM 8.8 mg/dL (8.5-10.1); CHLORIDE 105 mmol/L (98-107); CREATININE 3.86 mg/dL (0.7-1.3)
[2021-06-20] MEDS: SODIUM CHLORIDE FLUSH 10ML SYR IVF SCH ×2 (09:04→21:02)
[2021-06-20] MEDS: SENNA/DOCUSATE TABLET PO SCH (09:08)
[2021-06-20] MEDS ORDERED: ALBUMIN HUMAN 25% 200 ML ONE (09:15)
[2021-06-20] MEDS: ALBUMIN HUMAN 25% 100 ML IV PRN ×2 (09:16→09:17)
[2021-06-20] MEDS: ARANESP 100 MCG/ML **ESRD SQ SCH (13:46)
[2021-06-20] MEDS: FENTANYL PF 1,000 MCG in SODIUM CHLORIDE 0.9% 80 ML IV PRN (19:30)
[2021-06-20] MEDS: FAMOTIDINE 20 MG/2 ML IVPush SCH (21:01)
[2021-06-20] MEDS ORDERED: NOREPINEPHRINE 32 MG in SODIUM CHLORIDE 0.9% 218 ML IV PRN (21:30)
[2021-06-21] MEDS: AMPICILLIN/SULBACTAM 1,500 MG in SODIUM CHLORIDE 0.9% 50 ML IV SCH ×4 (00:26→18:04)
[2021-06-21 05:01] LABS: BASOPHILS % (AUTO) 1 % (0-1); EOSINOPHILS % (AUTO) 1 % (1-7); LYMPHOCYTES % (AUTO) 10 % (22-44); MEAN CORPUSCULAR HEMOGLOBIN 33.5 pg (27.5-34.5); MEAN CORPUSCULAR HGB CONC 34.4 g/dL (33.2-36.2); MONOCYTES % (AUTO) 8 % (2-9); NEUTROPHILS % (AUTO) 81 % (42-75); PLATELET COUNT 54 x10^3/uL (130-400); RED BLOOD COUNT 2.27 x10^6/uL (4.38-5.82); RED CELL DISTRIBUTION WIDTH 20.1 % (9.4-14.8)
[2021-06-21 05:12] LABS: ALBUMIN 2.8 g/dL (3.4-5.0); ANION GAP 8 mmol/L (5-15); CHLORIDE 102 mmol/L (98-107)
[2021-06-21 05:15] LABS: ALANINE AMINOTRANSFERASE 26 U/L (12-78); ALKALINE PHOSPHATASE 48 U/L (45-117); BILIRUBIN,TOTAL 1.7 mg/dL (0.2-1.0); CREATININE 3.16 mg/dL (0.7-1.3); TOTAL PROTEIN 5.9 g/dL (6.4-8.2)
[2021-06-21] MEDS: SODIUM CHLORIDE FLUSH 10ML SYR IVF SCH ×2 (09:52→20:32)
[2021-06-21] MEDS: SENNA/DOCUSATE TABLET PO SCH (09:52)
[2021-06-21] MEDS: FENTANYL PF 1,000 MCG in SODIUM CHLORIDE 0.9% 80 ML IV PRN (18:03)
[2021-06-21] MEDS: FAMOTIDINE 20 MG/2 ML IVPush SCH (22:10)
[2021-06-22] MEDS: PROPOFOL 100 ML IV PRN ×3 (00:59→22:07)
[2021-06-22] MEDS: AMPICILLIN/SULBACTAM 1,500 MG in SODIUM CHLORIDE 0.9% 50 ML IV SCH ×4 (00:59→17:57)
[2021-06-22] MEDS: SODIUM CHLORIDE FLUSH 10ML SYR IVF SCH ×2 (08:59→19:25)
[2021-06-22] MEDS: SENNA/DOCUSATE TABLET PO SCH (08:59)
[2021-06-22] MEDS ORDERED: GADOTERATE 7.5 MMOL/15ML SYR ONE (14:04)
[2021-06-22 16:06] VITALS: BP 110/64
[2021-06-22 16:21] VITALS: BP 102/60
[2021-06-22] MEDS: FENTANYL PF 1,000 MCG in SODIUM CHLORIDE 0.9% 80 ML IV PRN (17:07)
[2021-06-22 17:38] VITALS: BP 100/62
[2021-06-22] MEDS: FAMOTIDINE 20 MG/2 ML IVPush SCH (22:07)
[2021-06-23] MEDS: AMPICILLIN/SULBACTAM 1,500 MG in SODIUM CHLORIDE 0.9% 50 ML IV SCH ×3 (00:03→11:58)
[2021-06-23 04:13] LABS: BASOPHILS % (AUTO) 0 % (0-1); EOSINOPHILS % (AUTO) 0 % (1-7); LYMPHOCYTES % (AUTO) 6 % (22-44); MEAN CORPUSCULAR HEMOGLOBIN 33.6 pg (27.5-34.5); MEAN CORPUSCULAR HGB CONC 34.4 g/dL (33.2-36.2); MEAN PLATELET VOLUME 8.4 fL (7.4-10.4); MONOCYTES % (AUTO) 9 % (2-9); NEUTROPHILS % (AUTO) 84 % (42-75); RED BLOOD COUNT 2.26 x10^6/uL (4.38-5.82); RED CELL DISTRIBUTION WIDTH 19.1 % (9.4-14.8)
[2021-06-23 04:15] LABS: PLATELET COUNT 38 x10^3/uL (130-400)
[2021-06-23 04:23] LABS: ALBUMIN 2.6 g/dL (3.4-5.0); ANION GAP 8 mmol/L (5-15); CALCIUM 9.1 mg/dL (8.5-10.1); CHLORIDE 101 mmol/L (98-107)
[2021-06-23 04:28] LABS: ALANINE AMINOTRANSFERASE 19 U/L (12-78); ALKALINE PHOSPHATASE 48 U/L (45-117); BILIRUBIN,TOTAL 1.2 mg/dL (0.2-1.0); CREATININE 3.24 mg/dL (0.7-1.3); TOTAL PROTEIN 5.7 g/dL (6.4-8.2); TRIGLYCERIDES 101 mg/dL (50-200)
[2021-06-23] MEDS: FENTANYL PF 1,000 MCG in SODIUM CHLORIDE 0.9% 80 ML IV PRN (06:18)
[2021-06-23] MEDS: SENNA/DOCUSATE TABLET PO SCH (07:09)
[2021-06-23] MEDS: SODIUM CHLORIDE FLUSH 10ML SYR IVF SCH ×2 (07:12→21:02)
[2021-06-23 09:12] VITALS: BP 103/61
[2021-06-23] MEDS: ALBUMIN HUMAN 25% 100 ML IV PRN (09:22)
[2021-06-23 09:25] VITALS: BP 105/69
[2021-06-23] MEDS: PROPOFOL 100 ML IV PRN ×2 (10:15→21:03)
[2021-06-23 10:47] VITALS: BP 118/66
[2021-06-23 11:47] VITALS: BP 127/71
[2021-06-23] MEDS ORDERED: HEPARIN 5,000 UNITS/ML, 1ML SQ SCH (13:30)
[2021-06-23] MEDS: AMPICILLIN/SULBACTAM 3 GM in SODIUM CHLORIDE 0.9% 100 ML IV SCH (19:45)
[2021-06-23] MEDS: FAMOTIDINE 20 MG/2 ML IVPush SCH (21:02)
[2021-06-24 03:54] LABS: BASOPHILS % (AUTO) 1 % (0-1); EOSINOPHILS % (AUTO) 2 % (1-7); LYMPHOCYTES % (AUTO) 13 % (22-44); MEAN CORPUSCULAR HEMOGLOBIN 33.2 pg (27.5-34.5); MEAN CORPUSCULAR HGB CONC 33.7 g/dL (33.2-36.2); MEAN PLATELET VOLUME 8.3 fL (7.4-10.4); MONOCYTES % (AUTO) 13 % (2-9); NEUTROPHILS % (AUTO) 72 % (42-75); PLATELET COUNT 50 x10^3/uL (130-400); RED BLOOD COUNT 2.31 x10^6/uL (4.38-5.82); RED CELL DISTRIBUTION WIDTH 18.9 % (9.4-14.8)
[2021-06-24 03:57] LABS: ANION GAP 9 mmol/L (5-15); CALCIUM 8.5 mg/dL (8.5-10.1); CHLORIDE 98 mmol/L (98-107); CREATININE 2.85 mg/dL (0.7-1.3)
[2021-06-24] MEDS: FENTANYL PF 1,000 MCG in SODIUM CHLORIDE 0.9% 80 ML IV PRN (05:20)
[2021-06-24] MEDS: PROPOFOL 100 ML IV PRN ×3 (05:27→20:43)
[2021-06-24] MEDS: SENNA/DOCUSATE TABLET PO SCH (09:00)
[2021-06-24 15:38] LABS: ABSOLUTE RETICS # 0.101 x10^6/uL (0.5-1.5); RED BLOOD COUNT 2.32 x10^6/uL (4.38-5.82); RETICULOCYTE COUNT % 4.36 % (0.5-1.5)
[2021-06-24] MEDS: SODIUM CHLORIDE FLUSH 10ML SYR IVF SCH ×2 (16:28→20:45)
[2021-06-24] MEDS: AMPICILLIN/SULBACTAM 3 GM in SODIUM CHLORIDE 0.9% 100 ML IV SCH (20:36)
[2021-06-24] MEDS: FAMOTIDINE 20 MG/2 ML IVPush SCH (21:48)
[2021-06-25] MEDS: PROPOFOL 100 ML IV PRN ×2 (03:11→10:21)
[2021-06-25 04:00] LABS: BASOPHILS % (AUTO) 0 % (0-1); EOSINOPHILS % (AUTO) 2 % (1-7); LYMPHOCYTES % (AUTO) 9 % (22-44); MEAN CORPUSCULAR HEMOGLOBIN 33.8 pg (27.5-34.5); MEAN CORPUSCULAR HGB CONC 33.9 g/dL (33.2-36.2); MEAN PLATELET VOLUME 8.9 fL (7.4-10.4); MONOCYTES % (AUTO) 12 % (2-9); NEUTROPHILS % (AUTO) 76 % (42-75); PLATELET COUNT 54 x10^3/uL (130-400); RED BLOOD COUNT 2.27 x10^6/uL (4.38-5.82); RED CELL DISTRIBUTION WIDTH 20.1 % (9.4-14.8)
[2021-06-25 04:07] LABS: ALBUMIN 2.5 g/dL (3.4-5.0); ANION GAP 8 mmol/L (5-15); CALCIUM 8.2 mg/dL (8.5-10.1); CHLORIDE 99 mmol/L (98-107)
[2021-06-25 04:10] LABS: ALANINE AMINOTRANSFERASE 15 U/L (12-78); ALKALINE PHOSPHATASE 45 U/L (45-117); BILIRUBIN,TOTAL 0.9 mg/dL (0.2-1.0); CREATININE 2.18 mg/dL (0.7-1.3); TOTAL PROTEIN 5.9 g/dL (6.4-8.2)
[2021-06-25] MEDS: SENNA/DOCUSATE TABLET PO SCH (09:00)
[2021-06-25] MEDS: SODIUM CHLORIDE FLUSH 10ML SYR IVF SCH ×2 (09:20→20:07)
[2021-06-25] MEDS: AMPICILLIN/SULBACTAM 3 GM in SODIUM CHLORIDE 0.9% 100 ML IV SCH (20:06)
[2021-06-25] MEDS: FAMOTIDINE 20 MG/2 ML IVPush SCH (22:52)
[2021-06-26 04:05] LABS: BASOPHILS % (AUTO) 1 % (0-1); EOSINOPHILS % (AUTO) 2 % (1-7); LYMPHOCYTES % (AUTO) 9 % (22-44); MEAN CORPUSCULAR HEMOGLOBIN 33.4 pg (27.5-34.5); MEAN CORPUSCULAR HGB CONC 33.6 g/dL (33.2-36.2); MEAN PLATELET VOLUME 7.8 fL (7.4-10.4); MONOCYTES % (AUTO) 10 % (2-9); NEUTROPHILS % (AUTO) 78 % (42-75); PLATELET COUNT 63 x10^3/uL (130-400); RED CELL DISTRIBUTION WIDTH 20.9 % (9.4-14.8)
[2021-06-26 04:17] LABS: ALANINE AMINOTRANSFERASE 15 U/L (12-78); ALBUMIN 2.8 g/dL (3.4-5.0); ANION GAP 6 mmol/L (5-15); CALCIUM 8.9 mg/dL (8.5-10.1); CHLORIDE 100 mmol/L (98-107); CREATININE 1.91 mg/dL (0.7-1.3)
[2021-06-26 04:20] LABS: ALKALINE PHOSPHATASE 55 U/L (45-117); TOTAL PROTEIN 6.3 g/dL (6.4-8.2)
[2021-06-26] MEDS: FENTANYL PF 1,000 MCG in SODIUM CHLORIDE 0.9% 80 ML IV PRN ×2 (05:40→17:29)
[2021-06-26] MEDS: PROPOFOL 100 ML IV PRN ×3 (05:41→23:45)
[2021-06-26] MEDS: SODIUM CHLORIDE FLUSH 10ML SYR IVF SCH ×2 (09:00→20:32)
[2021-06-26] MEDS: SENNA/DOCUSATE TABLET PO SCH (09:00)
[2021-06-26] MEDS: AMPICILLIN/SULBACTAM 3 GM in SODIUM CHLORIDE 0.9% 100 ML IV SCH ×2 (16:00→23:34)
[2021-06-26] MEDS: FAMOTIDINE 20 MG/2 ML IVPush SCH (20:32)
[2021-06-27] MEDS: FENTANYL PF 1,000 MCG in SODIUM CHLORIDE 0.9% 80 ML IV PRN ×3 (03:20→22:07)
[2021-06-27 03:47] LABS: BASOPHILS % (AUTO) 1 % (0-1); EOSINOPHILS % (AUTO) 1 % (1-7); LYMPHOCYTES % (AUTO) 8 % (22-44); MEAN CORPUSCULAR HEMOGLOBIN 33.4 pg (27.5-34.5); MEAN CORPUSCULAR HGB CONC 33.6 g/dL (33.2-36.2); MEAN PLATELET VOLUME 7.9 fL (7.4-10.4); MONOCYTES % (AUTO) 8 % (2-9); NEUTROPHILS % (AUTO) 83 % (42-75); PLATELET COUNT 76 x10^3/uL (130-400); RED BLOOD COUNT 2.36 x10^6/uL (4.38-5.82); RED CELL DISTRIBUTION WIDTH 20.6 % (9.4-14.8)
[2021-06-27 04:00] LABS: ALANINE AMINOTRANSFERASE 16 U/L (12-78); ALBUMIN 2.4 g/dL (3.4-5.0); ANION GAP 8 mmol/L (5-15); CALCIUM 8.6 mg/dL (8.5-10.1); CHLORIDE 99 mmol/L (98-107)
[2021-06-27 04:02] LABS: ALKALINE PHOSPHATASE 57 U/L (45-117); BILIRUBIN,TOTAL 0.8 mg/dL (0.2-1.0); TOTAL PROTEIN 6.2 g/dL (6.4-8.2)
[2021-06-27] MEDS: PROPOFOL 100 ML IV PRN ×2 (06:02→22:53)
[2021-06-27] MEDS: AMPICILLIN/SULBACTAM 3 GM in SODIUM CHLORIDE 0.9% 100 ML IV SCH ×3 (06:25→22:53)
[2021-06-27] MEDS: SODIUM CHLORIDE FLUSH 10ML SYR IVF SCH ×2 (07:50→21:00)
[2021-06-27] MEDS: SENNA/DOCUSATE TABLET PO SCH (07:50)
[2021-06-27] MEDS: ARANESP 100 MCG/ML **ESRD SQ SCH (13:12)
--- NOTE | 2021-06-27 15:02 | NUR ---
Tube Feeds: Vital AF: goal on propofol: 55 ml/hr, off propofol: 65 ml/hr Addendum: 06/27/21 at [address] Amended: Links added.
[2021-06-28 03:25] LABS: BASOPHILS % (AUTO) 1 % (0-1); EOSINOPHILS % (AUTO) 2 % (1-7); LYMPHOCYTES % (AUTO) 8 % (22-44); MEAN CORPUSCULAR HEMOGLOBIN 33.2 pg (27.5-34.5); MEAN CORPUSCULAR HGB CONC 33.3 g/dL (33.2-36.2); MONOCYTES % (AUTO) 7 % (2-9); NEUTROPHILS % (AUTO) 83 % (42-75); PLATELET COUNT 79 x10^3/uL (130-400); RED BLOOD COUNT 2.19 x10^6/uL (4.38-5.82); RED CELL DISTRIBUTION WIDTH 20.2 % (9.4-14.8)
[2021-06-28 03:40] LABS: OVALOCYTES 1+
[2021-06-28 03:44] LABS: <PLATELET ESTIMATE> DECREASED; <PLT MORPHOLOGY> NORMAL PLT MORPH; ANISOCYTOSIS 2+
[2021-06-28 03:59] LABS: ALANINE AMINOTRANSFERASE 14 U/L (12-78); ALBUMIN 2.5 g/dL (3.4-5.0); ANION GAP 12 mmol/L (5-15); CALCIUM 8.7 mg/dL (8.5-10.1); CHLORIDE 99 mmol/L (98-107); CREATININE 3.93 mg/dL (0.7-1.3)
[2021-06-28 04:01] LABS: ALKALINE PHOSPHATASE 61 U/L (45-117); BILIRUBIN,TOTAL 0.7 mg/dL (0.2-1.0); TOTAL PROTEIN 6.2 g/dL (6.4-8.2)
[2021-06-28 05:17] VITALS: BP 122/58
[2021-06-28] MEDS: PROPOFOL 100 ML IV PRN ×2 (06:13→22:18)
[2021-06-28] MEDS: AMPICILLIN/SULBACTAM 3 GM in SODIUM CHLORIDE 0.9% 100 ML IV SCH ×2 (06:43→18:19)
[2021-06-28] MEDS ORDERED: DEXMEDETOMIDINE 400 MCG in SODIUM CHLORIDE 0.9% 96 ML IV PRN (07:30)
[2021-06-28] MEDS: FENTANYL PF 1,000 MCG in SODIUM CHLORIDE 0.9% 80 ML IV PRN (08:51)
[2021-06-28] MEDS: SENNA/DOCUSATE TABLET PO SCH (09:00)
[2021-06-28] MEDS: SODIUM CHLORIDE FLUSH 10ML SYR IVF SCH ×2 (09:00→19:49)
[2021-06-28] MEDS ORDERED: VECURONIUM 50 MG in SODIUM CHLORIDE 0.9% 50 ML IV PRN (19:00)
[2021-06-29] MEDS: PROPOFOL 100 ML IV PRN ×3 (04:00→21:30)
[2021-06-29 04:48] LABS: BASOPHILS % (AUTO) 0 % (0-1); EOSINOPHILS % (AUTO) 1 % (1-7); LYMPHOCYTES % (AUTO) 6 % (22-44); MEAN CORPUSCULAR HEMOGLOBIN 32.8 pg (27.5-34.5); MEAN PLATELET VOLUME 7.7 fL (7.4-10.4); MONOCYTES % (AUTO) 7 % (2-9); NEUTROPHILS % (AUTO) 87 % (42-75); PLATELET COUNT 105 x10^3/uL (130-400); RED BLOOD COUNT 2.57 x10^6/uL (4.38-5.82); RED CELL DISTRIBUTION WIDTH 20.3 % (9.4-14.8)
[2021-06-29 04:49] LABS: ALBUMIN 2.4 g/dL (3.4-5.0); ANION GAP 10 mmol/L (5-15); CALCIUM 8.4 mg/dL (8.5-10.1); CHLORIDE 98 mmol/L (98-107)
[2021-06-29 04:52] LABS: ALANINE AMINOTRANSFERASE 15 U/L (12-78); ALKALINE PHOSPHATASE 68 U/L (45-117); BILIRUBIN,TOTAL 0.9 mg/dL (0.2-1.0); CREATININE 3.08 mg/dL (0.7-1.3); TOTAL PROTEIN 6.5 g/dL (6.4-8.2)
[2021-06-29] MEDS: AMPICILLIN/SULBACTAM 3 GM in SODIUM CHLORIDE 0.9% 100 ML IV SCH ×2 (06:00→17:26)
[2021-06-29] MEDS: FENTANYL PF 2,500 MCG in SODIUM CHLORIDE 0.9% 200 ML IV PRN (06:17)
[2021-06-29] MEDS: SENNA/DOCUSATE TABLET PO SCH (09:00)
[2021-06-29] MEDS: SODIUM CHLORIDE FLUSH 10ML SYR IVF SCH ×2 (09:00→20:24)
[2021-06-30 04:56] LABS: BASOPHILS % (AUTO) 1 % (0-1); EOSINOPHILS % (AUTO) 1 % (1-7); LYMPHOCYTES % (AUTO) 7 % (22-44); MEAN CORPUSCULAR HEMOGLOBIN 32.8 pg (27.5-34.5); MEAN CORPUSCULAR HGB CONC 33.7 g/dL (33.2-36.2); MEAN PLATELET VOLUME 7.6 fL (7.4-10.4); MONOCYTES % (AUTO) 8 % (2-9); NEUTROPHILS % (AUTO) 83 % (42-75); PLATELET COUNT 120 x10^3/uL (130-400); RED BLOOD COUNT 2.51 x10^6/uL (4.38-5.82); RED CELL DISTRIBUTION WIDTH 20.3 % (9.4-14.8)
[2021-06-30 05:00] LABS: ALBUMIN 2.5 g/dL (3.4-5.0); ANION GAP 15 mmol/L (5-15); CALCIUM 8.9 mg/dL (8.5-10.1); CHLORIDE 98 mmol/L (98-107); CREATININE 4.16 mg/dL (0.7-1.3)
[2021-06-30] MEDS: FENTANYL PF 2,500 MCG in SODIUM CHLORIDE 0.9% 200 ML IV PRN (05:40)
[2021-06-30] MEDS: AMPICILLIN/SULBACTAM 3 GM in SODIUM CHLORIDE 0.9% 100 ML IV SCH (05:40)
[2021-06-30] MEDS: PROPOFOL 100 ML IV PRN ×3 (05:41→22:36)
[2021-06-30] MEDS: SENNA/DOCUSATE TABLET PO SCH (08:51)
[2021-06-30] MEDS: SODIUM CHLORIDE FLUSH 10ML SYR IVF SCH ×2 (12:17→22:35)
[2021-06-30] MEDS: HEPARIN 5,000 UNITS/ML, 1ML SQ SCH ×2 (12:17→22:36)
[2021-07-01 04:36] LABS: BASOPHILS % (AUTO) 1 % (0-1); EOSINOPHILS % (AUTO) 1 % (1-7); LYMPHOCYTES % (AUTO) 5 % (22-44); MEAN CORPUSCULAR HEMOGLOBIN 32.9 pg (27.5-34.5); MEAN CORPUSCULAR HGB CONC 33.9 g/dL (33.2-36.2); MEAN PLATELET VOLUME 7.2 fL (7.4-10.4); MONOCYTES % (AUTO) 7 % (2-9); NEUTROPHILS % (AUTO) 86 % (42-75); PLATELET COUNT 135 x10^3/uL (130-400); RED BLOOD COUNT 2.55 x10^6/uL (4.38-5.82); RED CELL DISTRIBUTION WIDTH 20.2 % (9.4-14.8)
[2021-07-01 04:44] LABS: ALBUMIN 2.4 g/dL (3.4-5.0); ANION GAP 13 mmol/L (5-15); CALCIUM 9.2 mg/dL (8.5-10.1); CHLORIDE 98 mmol/L (98-107); CREATININE 4.99 mg/dL (0.7-1.3)
[2021-07-01] MEDS: PROPOFOL 100 ML IV PRN ×3 (05:22→20:06)
[2021-07-01] MEDS: SENNA/DOCUSATE TABLET PO SCH (09:00)
[2021-07-01] MEDS: SODIUM CHLORIDE FLUSH 10ML SYR IVF SCH ×2 (11:02→20:06)
[2021-07-01] MEDS: HEPARIN 5,000 UNITS/ML, 1ML SQ SCH (11:03)
[2021-07-01] MEDS: FENTANYL PF 2,500 MCG in SODIUM CHLORIDE 0.9% 200 ML IV PRN (11:48)
[2021-07-02] MEDS: HEPARIN 5,000 UNITS/ML, 1ML SQ SCH ×3 (00:07→22:39)
[2021-07-02] MEDS: PROPOFOL 100 ML IV PRN ×2 (01:57→08:03)
[2021-07-02 04:52] LABS: BASOPHILS % (AUTO) 1 % (0-1); EOSINOPHILS % (AUTO) 2 % (1-7); LYMPHOCYTES % (AUTO) 8 % (22-44); MEAN CORPUSCULAR HEMOGLOBIN 33.3 pg (27.5-34.5); MEAN CORPUSCULAR HGB CONC 34.5 g/dL (33.2-36.2); MEAN PLATELET VOLUME 7.3 fL (7.4-10.4); MONOCYTES % (AUTO) 9 % (2-9); NEUTROPHILS % (AUTO) 80 % (42-75); PLATELET COUNT 157 x10^3/uL (130-400); RED BLOOD COUNT 2.69 x10^6/uL (4.38-5.82); RED CELL DISTRIBUTION WIDTH 19.6 % (9.4-14.8)
[2021-07-02 04:59] LABS: ANION GAP 10 mmol/L (5-15); CALCIUM 9.1 mg/dL (8.5-10.1); CHLORIDE 97 mmol/L (98-107); CREATININE 3.55 mg/dL (0.7-1.3)
[2021-07-02] MEDS: SODIUM CHLORIDE FLUSH 10ML SYR IVF SCH ×2 (08:08→21:00)
[2021-07-02] MEDS: SENNA/DOCUSATE TABLET PO SCH (08:41)
[2021-07-02] MEDS: QUETIAPINE 25MG TABLET PO SCH ×2 (09:30→22:39)
[2021-07-02] MEDS: FAMOTIDINE 20 MG/2 ML IVPush SCH (09:30)
[2021-07-02] MEDS: FENTANYL PF 2,500 MCG in SODIUM CHLORIDE 0.9% 200 ML IV PRN (23:12)
[2021-07-03] MEDS: SENNA/DOCUSATE TABLET PO SCH (09:00)
[2021-07-03] MEDS: SODIUM CHLORIDE FLUSH 10ML SYR IVF SCH ×2 (09:00→21:00)
[2021-07-03] MEDS: HEPARIN 5,000 UNITS/ML, 1ML SQ SCH ×2 (09:16→20:57)
[2021-07-03] MEDS: CHOLESTYRAMINE LIGHT 4GM PACKET PO SCH ×2 (09:16→22:00)
[2021-07-03] MEDS: QUETIAPINE 25MG TABLET PO SCH ×2 (09:16→20:57)
[2021-07-03] MEDS: FAMOTIDINE 20 MG/2 ML IVPush SCH (09:16)
[2021-07-03] MEDS: PROPOFOL 100 ML IV PRN ×3 (09:22→23:00)
[2021-07-03 09:50] LABS: BASOPHILS % (AUTO) 1 % (0-1); EOSINOPHILS % (AUTO) 2 % (1-7); LYMPHOCYTES % (AUTO) 10 % (22-44); MEAN CORPUSCULAR HEMOGLOBIN 32.5 pg (27.5-34.5); MEAN CORPUSCULAR HGB CONC 33.8 g/dL (33.2-36.2); MEAN PLATELET VOLUME 6.8 fL (7.4-10.4); MONOCYTES % (AUTO) 9 % (2-9); NEUTROPHILS % (AUTO) 78 % (42-75); PLATELET COUNT 164 x10^3/uL (130-400); RED BLOOD COUNT 2.48 x10^6/uL (4.38-5.82); RED CELL DISTRIBUTION WIDTH 19.4 % (9.4-14.8)
[2021-07-03 10:03] LABS: ANION GAP 17 mmol/L (5-15); CALCIUM 9.3 mg/dL (8.5-10.1); CHLORIDE 94 mmol/L (98-107)
[2021-07-03 10:04] LABS: CREATININE 4.64 mg/dL (0.7-1.3)
[2021-07-04 04:38] LABS: BASOPHILS % (AUTO) 1 % (0-1); EOSINOPHILS % (AUTO) 1 % (1-7); LYMPHOCYTES % (AUTO) 6 % (22-44); MEAN CORPUSCULAR HEMOGLOBIN 32.7 pg (27.5-34.5); MEAN CORPUSCULAR HGB CONC 34.2 g/dL (33.2-36.2); MONOCYTES % (AUTO) 8 % (2-9); NEUTROPHILS % (AUTO) 84 % (42-75); PLATELET COUNT 177 x10^3/uL (130-400); RED BLOOD COUNT 2.71 x10^6/uL (4.38-5.82); RED CELL DISTRIBUTION WIDTH 19.4 % (9.4-14.8)
[2021-07-04 04:53] LABS: ANION GAP 11 mmol/L (5-15); CALCIUM 9.4 mg/dL (8.5-10.1); CHLORIDE 94 mmol/L (98-107)
[2021-07-04 04:54] LABS: CREATININE 3.18 mg/dL (0.7-1.3)
[2021-07-04] MEDS: PROPOFOL 100 ML IV PRN (05:00)
[2021-07-04] MEDS: FENTANYL PF 2,500 MCG in SODIUM CHLORIDE 0.9% 200 ML IV PRN (08:28)
[2021-07-04] MEDS: SODIUM CHLORIDE FLUSH 10ML SYR IVF SCH ×2 (09:00→21:00)
[2021-07-04] MEDS: SENNA/DOCUSATE TABLET PO SCH (09:00)
[2021-07-04] MEDS: HEPARIN 5,000 UNITS/ML, 1ML SQ SCH ×2 (10:01→22:30)
[2021-07-04] MEDS: PANTOPRAZOLE 40 MG IV IVPush SCH (10:01)
[2021-07-04] MEDS: QUETIAPINE 25MG TABLET PO SCH ×2 (10:01→20:35)
[2021-07-04] MEDS: CHOLESTYRAMINE LIGHT 4GM PACKET PO SCH ×2 (10:02→21:00)
[2021-07-04] MEDS: ARANESP 100 MCG/ML **ESRD SQ SCH (18:23)
[2021-07-04 20:56] LABS: OCCULT BLOOD POSITIVE (NEGATIVE)
[2021-07-05 04:52] LABS: BASOPHILS % (AUTO) 1 % (0-1); EOSINOPHILS % (AUTO) 1 % (1-7); LYMPHOCYTES % (AUTO) 7 % (22-44); MEAN CORPUSCULAR HEMOGLOBIN 32.5 pg (27.5-34.5); MEAN CORPUSCULAR HGB CONC 33.8 g/dL (33.2-36.2); MEAN PLATELET VOLUME 6.6 fL (7.4-10.4); MONOCYTES % (AUTO) 9 % (2-9); NEUTROPHILS % (AUTO) 82 % (42-75); PLATELET COUNT 180 x10^3/uL (130-400); RED CELL DISTRIBUTION WIDTH 18.5 % (9.4-14.8)
[2021-07-05 05:03] LABS: CHLORIDE 95 mmol/L (98-107)
[2021-07-05 05:06] LABS: ANION GAP 15 mmol/L (5-15); CALCIUM 9.7 mg/dL (8.5-10.1); CREATININE 4.32 mg/dL (0.7-1.3)
[2021-07-05] MEDS: PROPOFOL 100 ML IV PRN ×3 (07:40→18:13)
[2021-07-05] MEDS ORDERED: PROPOFOL 100 ML IV ONE (07:43)
[2021-07-05 08:18] LABS: FIO2 100 %
[2021-07-05] MEDS ORDERED: ADENOSINE 6 MG/2 ML IVPush PRN (09:00)
[2021-07-05] MEDS: SODIUM CHLORIDE FLUSH 10ML SYR IVF SCH ×3 (09:00→21:32)
[2021-07-05] MEDS: SENNA/DOCUSATE TABLET PO SCH (09:00)
[2021-07-05] MEDS: CHOLESTYRAMINE LIGHT 4GM PACKET PO SCH ×2 (10:30→22:37)
[2021-07-05] MEDS: QUETIAPINE 25MG TABLET PO SCH ×2 (10:31→21:32)
[2021-07-05] MEDS: PANTOPRAZOLE 40 MG IV IVPush SCH (10:32)
[2021-07-05] MEDS: HEPARIN 5,000 UNITS/ML, 1ML SQ SCH ×2 (10:32→22:38)
[2021-07-05] MEDS ORDERED: NOREPINEPHRINE 8 MG in SODIUM CHLORIDE 0.9% 242 ML IV PRN (12:00)
[2021-07-05] MEDS ORDERED: GLUCAGON 1 MG IM PRN (15:00)
[2021-07-05] MEDS ORDERED: PHARMACY MAY ADJ FOR RENAL FX MC SCH (15:00)
[2021-07-05] MEDS ORDERED: LIDOCAINE-MPF 1%, 2ML ENDO PRN (15:00)
[2021-07-05] MEDS ORDERED: DEXTROSE 50%, 50ML SYRINGE IVPush PRN (15:00)
[2021-07-05] MEDS ORDERED: DEXTROSE 4 GM TAB.CHEW PO PRN (15:00)
[2021-07-05] MEDS ORDERED: ROCURONIUM 10MG/ML,5ML ONE (15:08)
[2021-07-05] MEDS ORDERED: ETOMIDATE 20 MG/10 ML ONE (15:08)
[2021-07-06] MEDS: PROPOFOL 100 ML IV PRN ×4 (02:40→17:43)
[2021-07-06] MEDS: FENTANYL PF 1,000 MCG in SODIUM CHLORIDE 0.9% 80 ML IV PRN ×2 (02:41→16:41)
[2021-07-06 06:45] LABS: BASOPHILS % (AUTO) 1 % (0-1); EOSINOPHILS % (AUTO) 2 % (1-7); LYMPHOCYTES % (AUTO) 9 % (22-44); MEAN CORPUSCULAR HEMOGLOBIN 32.6 pg (27.5-34.5); MEAN CORPUSCULAR HGB CONC 34.2 g/dL (33.2-36.2); MONOCYTES % (AUTO) 9 % (2-9); NEUTROPHILS % (AUTO) 79 % (42-75); PLATELET COUNT 172 x10^3/uL (130-400); RED BLOOD COUNT 2.41 x10^6/uL (4.38-5.82); RED CELL DISTRIBUTION WIDTH 18.6 % (9.4-14.8)
[2021-07-06 07:00] LABS: ANION GAP 13 mmol/L (5-15); CALCIUM 9.1 mg/dL (8.5-10.1); CHLORIDE 96 mmol/L (98-107)
[2021-07-06 07:01] LABS: CREATININE 3.32 mg/dL (0.7-1.3)
[2021-07-06] MEDS: SODIUM CHLORIDE FLUSH 10ML SYR IVF SCH ×2 (08:54→08:55)
[2021-07-06] MEDS: PANTOPRAZOLE 40 MG IV IVPush SCH (08:54)
[2021-07-06] MEDS: SENNA/DOCUSATE TABLET PO SCH (08:54)
[2021-07-06] MEDS: QUETIAPINE 25MG TABLET PO SCH (08:55)
[2021-07-06] MEDS: HEPARIN 5,000 UNITS/ML, 1ML SQ SCH (09:51)
[2021-07-06] MEDS ORDERED: SODIUM CHLORIDE 0.9%, 500ML IVBOLUS ONE (17:00)
[2021-07-06 21:01] VITALS: BP 101/51
[2021-07-06 21:16] VITALS: BP 118/57
[2021-07-06 21:31] VITALS: BP 99/47
[2021-07-06 22:01] VITALS: BP 96/51
[2021-07-06 23:00] VITALS: BP 103/55
[2021-07-07] VITALS: BP 124/65
[2021-07-07] MEDS: QUETIAPINE 25MG TABLET PO SCH ×3 (00:14→21:18)
[2021-07-07] MEDS: PROPOFOL 100 ML IV PRN ×4 (00:14→21:18)
[2021-07-07] MEDS: FENTANYL PF 1,000 MCG in SODIUM CHLORIDE 0.9% 80 ML IV PRN ×2 (04:11→17:55)
[2021-07-07 04:17] LABS: BASOPHILS % (AUTO) 1 % (0-1); EOSINOPHILS % (AUTO) 3 % (1-7); LYMPHOCYTES % (AUTO) 10 % (22-44); MEAN CORPUSCULAR HEMOGLOBIN 31.4 pg (27.5-34.5); MEAN PLATELET VOLUME 6.7 fL (7.4-10.4); MONOCYTES % (AUTO) 11 % (2-9); NEUTROPHILS % (AUTO) 74 % (42-75); PLATELET COUNT 164 x10^3/uL (130-400); RED BLOOD COUNT 2.56 x10^6/uL (4.38-5.82); RED CELL DISTRIBUTION WIDTH 20.7 % (9.4-14.8)
[2021-07-07 04:23] LABS: ANION GAP 14 mmol/L (5-15); CALCIUM 8.6 mg/dL (8.5-10.1); CHLORIDE 95 mmol/L (98-107); CREATININE 3.89 mg/dL (0.7-1.3)
[2021-07-07] MEDS: SODIUM CHLORIDE FLUSH 10ML SYR IVF SCH ×6 (05:53→21:19)
[2021-07-07] MEDS: SENNA/DOCUSATE TABLET PO SCH (08:39)
[2021-07-07] MEDS: PANTOPRAZOLE 40 MG IV IVPush SCH (08:39)
[2021-07-08 04:35] LABS: BASOPHILS % (AUTO) 1 % (0-1); EOSINOPHILS % (AUTO) 4 % (1-7); LYMPHOCYTES % (AUTO) 13 % (22-44); MEAN CORPUSCULAR HEMOGLOBIN 31.6 pg (27.5-34.5); MEAN CORPUSCULAR HGB CONC 34.5 g/dL (33.2-36.2); MEAN PLATELET VOLUME 6.8 fL (7.4-10.4); MONOCYTES % (AUTO) 11 % (2-9); NEUTROPHILS % (AUTO) 70 % (42-75); PLATELET COUNT 182 x10^3/uL (130-400); RED BLOOD COUNT 2.65 x10^6/uL (4.38-5.82); RED CELL DISTRIBUTION WIDTH 20.4 % (9.4-14.8)
[2021-07-08 04:42] LABS: ANION GAP 15 mmol/L (5-15); CHLORIDE 95 mmol/L (98-107); CREATININE 4.65 mg/dL (0.7-1.3); TRIGLYCERIDES 107 mg/dL (50-200)
[2021-07-08] MEDS: FENTANYL PF 1,000 MCG in SODIUM CHLORIDE 0.9% 80 ML IV PRN ×2 (07:00→21:30)
[2021-07-08] MEDS: SENNA/DOCUSATE TABLET PO SCH (08:26)
[2021-07-08] MEDS: PANTOPRAZOLE 40 MG IV IVPush SCH (08:26)
[2021-07-08] MEDS: QUETIAPINE 25MG TABLET PO SCH ×2 (08:26→19:51)
[2021-07-08] MEDS: SODIUM CHLORIDE FLUSH 10ML SYR IVF SCH ×4 (08:27→19:51)
[2021-07-08] MEDS: PROPOFOL 100 ML IV PRN ×2 (11:14→19:20)
[2021-07-08] MEDS ORDERED: FILTER 0.22 MICRON FOR AMIODARONE IV PRN (16:00)
[2021-07-08] MEDS: AMIODARONE 450 MG in DEXTROSE 5% 241 ML IV PRN ×2 (16:13→23:11)
[2021-07-08] MEDS ORDERED: AMIODARONE 150 MG in DEXTROSE 5% 100 ML IV ONE (17:00)
[2021-07-08] MEDS: METOPROLOL TARTRATE 25 MG TAB PO SCH (17:18)
[2021-07-08] MEDS ORDERED: METOPROLOL 1 MG/ML, 5ML IVPush PRN (17:30)
[2021-07-09] MEDS: METOPROLOL TARTRATE 25 MG TAB PO SCH ×3 (01:54→20:11)
[2021-07-09 04:24] LABS: BASOPHILS % (AUTO) 1 % (0-1); EOSINOPHILS % (AUTO) 3 % (1-7); LYMPHOCYTES % (AUTO) 12 % (22-44); MEAN CORPUSCULAR HEMOGLOBIN 31.1 pg (27.5-34.5); MEAN CORPUSCULAR HGB CONC 33.9 g/dL (33.2-36.2); MEAN PLATELET VOLUME 6.7 fL (7.4-10.4); MONOCYTES % (AUTO) 14 % (2-9); NEUTROPHILS % (AUTO) 71 % (42-75); PLATELET COUNT 185 x10^3/uL (130-400); RED CELL DISTRIBUTION WIDTH 19.7 % (9.4-14.8)
[2021-07-09 04:35] LABS: ALANINE AMINOTRANSFERASE 42 U/L (12-78); ALBUMIN 2.1 g/dL (3.4-5.0); ANION GAP 9 mmol/L (5-15); CALCIUM 9.1 mg/dL (8.5-10.1); CHLORIDE 93 mmol/L (98-107); CREATININE 3.35 mg/dL (0.7-1.3)
[2021-07-09 04:37] LABS: ALKALINE PHOSPHATASE 149 U/L (45-117); BILIRUBIN,TOTAL 0.7 mg/dL (0.2-1.0); TOTAL PROTEIN 6.2 g/dL (6.4-8.2)
[2021-07-09] MEDS: PROPOFOL 100 ML IV PRN ×3 (06:42→19:16)
[2021-07-09] MEDS: SODIUM CHLORIDE FLUSH 10ML SYR IVF SCH ×4 (09:00→19:25)
[2021-07-09] MEDS: FENTANYL PF 1,000 MCG in SODIUM CHLORIDE 0.9% 80 ML IV PRN ×2 (10:59→21:52)
[2021-07-09] MEDS: PANTOPRAZOLE 40 MG IV IVPush SCH (12:23)
[2021-07-09] MEDS: SENNA/DOCUSATE TABLET PO SCH (12:24)
[2021-07-09] MEDS: QUETIAPINE 25MG TABLET PO SCH ×2 (12:25→20:11)
[2021-07-09] MEDS: AMIODARONE 200 MG TABLET PO SCH ×2 (12:25→20:11)
[2021-07-10] MEDS: PROPOFOL 100 ML IV PRN ×3 (00:11→21:58)
[2021-07-10 03:58] LABS: BASOPHILS % (AUTO) 1 % (0-1); EOSINOPHILS % (AUTO) 2 % (1-7); LYMPHOCYTES % (AUTO) 11 % (22-44); MEAN CORPUSCULAR HEMOGLOBIN 31.2 pg (27.5-34.5); MEAN PLATELET VOLUME 6.7 fL (7.4-10.4); MONOCYTES % (AUTO) 11 % (2-9); NEUTROPHILS % (AUTO) 75 % (42-75); PLATELET COUNT 196 x10^3/uL (130-400); RED BLOOD COUNT 2.87 x10^6/uL (4.38-5.82); RED CELL DISTRIBUTION WIDTH 19.7 % (9.4-14.8)
[2021-07-10 04:05] LABS: ALBUMIN 2.1 g/dL (3.4-5.0); ANION GAP 11 mmol/L (5-15); CALCIUM 8.9 mg/dL (8.5-10.1); CHLORIDE 95 mmol/L (98-107); CREATININE 2.47 mg/dL (0.7-1.3)
[2021-07-10] MEDS: METOPROLOL TARTRATE 25 MG TAB PO SCH ×3 (05:14→19:46)
[2021-07-10] MEDS: FENTANYL PF 1,000 MCG in SODIUM CHLORIDE 0.9% 80 ML IV PRN ×2 (07:49→18:19)
[2021-07-10] MEDS: QUETIAPINE 25MG TABLET PO SCH ×2 (10:09→19:45)
[2021-07-10] MEDS: SENNA/DOCUSATE TABLET PO SCH (10:09)
[2021-07-10] MEDS: PANTOPRAZOLE 40 MG IV IVPush SCH (10:09)
[2021-07-10] MEDS: SODIUM CHLORIDE FLUSH 10ML SYR IVF SCH ×4 (10:09→19:46)
[2021-07-10] MEDS: AMIODARONE 200 MG TABLET PO SCH ×2 (10:09→19:46)
[2021-07-11] MEDS: PROPOFOL 100 ML IV PRN ×2 (03:01→11:14)
[2021-07-11 04:23] LABS: RED BLOOD COUNT 2.81 x10^6/uL (4.38-5.82)
[2021-07-11 04:26] LABS: BASOPHILS % (AUTO) 1 % (0-1); EOSINOPHILS % (AUTO) 2 % (1-7); LYMPHOCYTES % (AUTO) 7 % (22-44); MEAN CORPUSCULAR HEMOGLOBIN 31.5 pg (27.5-34.5); MEAN CORPUSCULAR HGB CONC 34.6 g/dL (33.2-36.2); MEAN PLATELET VOLUME 7.3 fL (7.4-10.4); MONOCYTES % (AUTO) 11 % (2-9); NEUTROPHILS % (AUTO) 81 % (42-75); PLATELET COUNT 177 x10^3/uL (130-400); RED CELL DISTRIBUTION WIDTH 19.5 % (9.4-14.8)
[2021-07-11] MEDS: METOPROLOL TARTRATE 25 MG TAB PO SCH ×2 (04:45→12:30)
[2021-07-11] MEDS: FENTANYL PF 1,000 MCG in SODIUM CHLORIDE 0.9% 80 ML IV PRN (05:09)
[2021-07-11 06:21] LABS: ANION GAP 12 mmol/L (5-15); CALCIUM 8.8 mg/dL (8.5-10.1); CHLORIDE 92 mmol/L (98-107)
[2021-07-11 06:24] LABS: CREATININE 3.35 mg/dL (0.7-1.3); TRIGLYCERIDES 109 mg/dL (50-200)
[2021-07-11] MEDS: QUETIAPINE 25MG TABLET PO SCH (09:07)
[2021-07-11] MEDS: SENNA/DOCUSATE TABLET PO SCH (09:07)
[2021-07-11] MEDS: PANTOPRAZOLE 40 MG IV IVPush SCH (09:08)
[2021-07-11] MEDS: AMIODARONE 200 MG TABLET PO SCH (09:08)
[2021-07-11] MEDS: SODIUM CHLORIDE FLUSH 10ML SYR IVF SCH ×4 (09:08→20:55)
[2021-07-11] MEDS ORDERED: ALBUMIN HUMAN 25% 100 ML IV ONE (11:30)
[2021-07-11] MEDS: ARANESP 100 MCG/ML **ESRD SQ SCH (16:00)
[2021-07-11] MEDS ORDERED: MORPHINE SULFATE 4 MG/ML, 1ML IV ONE (16:30)
[2021-07-11] MEDS ORDERED: ONDANSETRON 2MG/ML, 2ML IVPush PRN (16:30)
[2021-07-11] MEDS ORDERED: MORPHINE SULFATE 4 MG/ML, 1ML IVPush PRN (16:30)
[2021-07-11] MEDS ORDERED: LORazepam 2 MG/ML, 1ML IV ONE (16:30)
[2021-07-11] MEDS ORDERED: LORazepam 2 MG/ML, 1ML IVPush PRN (16:30)
[2021-07-11] MEDS: ATROPINE OPHTH SOLN 1%, 5ML PO PRN ×2 (21:27→22:47)
[2021-07-12] MEDS ORDERED: LORazepam 2 MG/ML, 1ML IVPush SCH (08:00)
[2021-07-12] MEDS ORDERED: LORazepam 2 MG/ML, 1ML IVPush PRN (08:00)
== END 2021-07-12 10:27 | DRG 207 ==
LOC: EDBD → EDSEX → MERGE 11:45 → ED 15:20 → CCU 15:30 → 4NW 07-11 17:35
PROVIDERS: ADMIT Internal Medicine; ATTEND Internal Medicine
PROC: 5A1955Z Respiratory Ventilation, Greater than 96 Consecutive Hours (ICD-10-PCS; 2021-06-18)
PROC: 0BH17EZ Insertion of Endotracheal Airway into Trachea, Via Natural or Artificial Opening (ICD-10-PCS; 2021-06-18)
PROC: 03HY32Z Insertion of Monitoring Device into Upper Artery, Percutaneous Approach (ICD-10-PCS; 2021-06-18)
PROC: 30233N1 Transfusion of Nonautologous Red Blood Cells into Peripheral Vein, Percutaneous Approach (ICD-10-PCS; principal; 2021-06-19)
PROC: 30233R1 Transfusion of Nonautologous Platelets into Peripheral Vein, Percutaneous Approach (ICD-10-PCS; 2021-06-19)
PROC: 5A1D70Z Performance of Urinary Filtration, Intermittent, Less than 6 Hours Per Day (ICD-10-PCS; 2021-06-20)
PROC: 5A1D70Z Performance of Urinary Filtration, Intermittent, Less than 6 Hours Per Day (ICD-10-PCS; 2021-06-22)
PROC: 5A1D70Z Performance of Urinary Filtration, Intermittent, Less than 6 Hours Per Day (ICD-10-PCS; 2021-06-23)
PROC: 5A1D70Z Performance of Urinary Filtration, Intermittent, Less than 6 Hours Per Day (ICD-10-PCS; 2021-06-24)
PROC: 5A1D70Z Performance of Urinary Filtration, Intermittent, Less than 6 Hours Per Day (ICD-10-PCS; 2021-06-25)
PROC: 0JH63WZ Insertion of Totally Implantable Vascular Access Device into Chest Subcutaneous Tissue and Fascia, Percutaneous Approach (ICD-10-PCS; 2021-06-26)
PROC: 02HV33Z Insertion of Infusion Device into Superior Vena Cava, Percutaneous Approach (ICD-10-PCS; 2021-06-26)
PROC: B5181ZA Fluoroscopy of Superior Vena Cava using Low Osmolar Contrast, Guidance (ICD-10-PCS; 2021-06-26)
PROC: B548ZZA Ultrasonography of Superior Vena Cava, Guidance (ICD-10-PCS; 2021-06-26)
PROC: 5A1D70Z Performance of Urinary Filtration, Intermittent, Less than 6 Hours Per Day (ICD-10-PCS; 2021-06-28)
PROC: 5A1D70Z Performance of Urinary Filtration, Intermittent, Less than 6 Hours Per Day (ICD-10-PCS; 2021-07-01)
PROC: 5A1D70Z Performance of Urinary Filtration, Intermittent, Less than 6 Hours Per Day (ICD-10-PCS; 2021-07-03)
PROC: 5A1D70Z Performance of Urinary Filtration, Intermittent, Less than 6 Hours Per Day (ICD-10-PCS; 2021-07-05)
PROC: 5A1D70Z Performance of Urinary Filtration, Intermittent, Less than 6 Hours Per Day (ICD-10-PCS; 2021-07-08)
PROC: 5A1D70Z Performance of Urinary Filtration, Intermittent, Less than 6 Hours Per Day (ICD-10-PCS; 2021-07-09)
PROC: 5A1D70Z Performance of Urinary Filtration, Intermittent, Less than 6 Hours Per Day (ICD-10-PCS; 2021-07-11)
DX: J96.01 Acute respiratory failure with hypoxia (principal); N17.0 Acute kidney failure with tubular necrosis; N18.6 End stage renal disease; J18.9 Pneumonia, unspecified organism; I50.43 Acute on chronic combined systolic (congestive) and diastolic (congestive) heart failure; I42.0 Dilated cardiomyopathy; Z99.11 Dependence on respirator [ventilator] status; D68.9 Coagulation defect, unspecified; E87.1 Hypo-osmolality and hyponatremia; Q61.2 Polycystic kidney, adult type; J44.1 Chronic obstructive pulmonary disease with (acute) exacerbation; I13.2 Hypertensive heart and chronic kidney disease with heart failure and with stage 5 chronic kidney disease, or end stage renal disease; I46.9 Cardiac arrest, cause unspecified; I49.01 Ventricular fibrillation; C44.90 Unspecified malignant neoplasm of skin, unspecified; Z66 Do not resuscitate; Z51.5 Encounter for palliative care; K42.9 Umbilical hernia without obstruction or gangrene; I49.3 Ventricular premature depolarization; I48.0 Paroxysmal atrial fibrillation; I25.10 Atherosclerotic heart disease of native coronary artery without angina pectoris; I07.1 Rheumatic tricuspid insufficiency; F17.200 Nicotine dependence, unspecified, uncomplicated; F12.90 Cannabis use, unspecified, uncomplicated; E88.09 Other disorders of plasma-protein metabolism, not elsewhere classified; E87.5 Hyperkalemia; E16.2 Hypoglycemia, unspecified; D69.6 Thrombocytopenia, unspecified; D63.8 Anemia in other chronic diseases classified elsewhere; D53.9 Nutritional anemia, unspecified; I27.20 Pulmonary hypertension, unspecified; K76.89 Other specified diseases of liver; S42.001A Fracture of unspecified part of right clavicle, initial encounter for closed fracture; W18.39XA Other fall on same level, initial encounter; Z99.81 Dependence on supplemental oxygen; Z99.2 Dependence on renal dialysis; Z91.19 Patient's noncompliance with other medical treatment and regimen; Z86.73 Personal history of transient ischemic attack (TIA), and cerebral infarction without residual deficits; Z82.71 Family history of polycystic kidney; Z82.49 Family history of ischemic heart disease and other diseases of the circulatory system; Z63.8 Other specified problems related to primary support group; Y93.89 Activity, other specified; I25.2 Old myocardial infarction; Z85.828 Personal history of other malignant neoplasm of skin; Z95.5 Presence of coronary angioplasty implant and graft; Y92.89 Other specified places as the place of occurrence of the external cause; Y99.8 Other external cause status
CPT/HCPCS: 36415; 36556; 36600; 70553; 71045; 74018; 77001; 80048; 80053; 80069; 82272; 82306; 82330; 82542; 82607; 82728; 82803; 82947; 82962; 83540; 83550; 83735; 83880; 84100; 84132; 84443; 84478; 84484; 84550; 85014; 85018; 85025; 85045; 85610; 85730; 86850; 86900; 86923; 87070; 87081; 87205; 90935; 93005; 93306; 94002; 94003; 94150; 96374; 96375; G0378; J0295; J0882; J1644; J2250; J2270; J2704; J3010; J3480; J7030; J7060; P9047; A9575; C1751; C9113; J0282; J2060; J7040; J7050; P9016; P9035